=== PATIENT | male | born 1955 | race Caucasian/White ===

== ENCOUNTER → 2019-10-05 08:30 | Outpatient (CLI) | payer MEDICARE, SELFPAY ==
--- NOTE | ~2019-10-05 | MR_ITS ---
EXAMINATION: MR lumbar spine wo/w con EXAM DATE: 10/05/2019 09:36 INDICATION: Radiculopathy, low back surgery one and a half years ago. Difficulty walking. TECHNIQUE: Multi-sequential, multiplanar MR images of the lumbar spine were obtained without contrast . Sagittal T1, T2, T2 fat saturation images. Axial T2 weighted images. Axial T1 weighted sequence. Patient was then injected with 20 mL Multihance intravenous contrast and reimaged. Postcontrast axi al and sagittal T1-weighted fat saturation sequences were obtained. Comparison is made to prior exa mination from 03/02/2017. FINDINGS: The conus medullaris terminates at the L1 level and has normal signal intensity and morphol ogy. There are laminectomies L2-L4. There is some enhancement of the posterior scar tissue, expected finding. No epidural abscess. Mild disc disease L2-3, L3-4 and L5-S1. Severe disc disease L4-5, thes e vertebral bodies now appear partially fused compared to prior study. Level by level evaluation: T12-L1: There is a minimal diffuse disc bulge. Facet arthropathy: Mild to moderate. Neural foraminal stenosis: No stenosis. Central canal stenosis: Mild. L1-L2: There is a minimal diffuse disc bulge. Facet arthropathy: Moderate right, mild to moderate left. Neural foraminal stenosis: No stenosis. Central canal stenosis: No stenosis. L2-L3: There is a moderate to large diffuse disc bulge. Facet arthropathy: Moderate. Neural foraminal stenosis: Moderate right, mild to moderate left. Central canal stenosis: Posterior decompression. L3-L4: There is a moderate to large diffuse disc bulge. Facet arthropathy: Moderate. Neural foraminal stenosis: Moderate bilateral, right greater than left. Central canal stenosis: Posterior decompression. L4-L5: Partial osseous fusion Facet arthropathy: Moderate left, mild to moderate right. Neural foraminal stenosis: Moderate bilateral, left greater than right. Central canal stenosis: Posterior decompression. L5-S1: There is a mild to moderate diffuse disc bulge. Facet arthropathy: Moderate. Neural foraminal stenosis: Moderate left, mild to moderate right. Central canal stenosis: Mild. There is been mild progression in the spondylosis compared to prior study. IMPRESSION: 1. L2-4 laminectomies. 2. Moderate multilevel neural foraminal stenosis. Reviewed, dictated and finalized at location A. [place]
[2019-10-05 09:03] LABS: Blood Urea Nitrogen 16 mg/dL (8-26); Estimated Glomerular Filt Rate > 60
== END ==
PROVIDERS: PCP Anesthesiology; Visit Provider Anesthesiology
DX: M54.16 Radiculopathy, lumbar region (principal)
CPT/HCPCS: 72158; A9577

== ENCOUNTER 2019-10-31 07:09 | Outpatient (CLI) | payer MEDICARE, SELFPAY ==
--- NOTE | 2019-10-31 | ECG_ITS ---
Measurements Intervals [place] Rate: 80 P: 63 AR: 210 QRS: -14 QRSD: 98 T: 55 QT: 377 QTc: 436 Interpretive Statements SINUS RHYTHM WITH FIRST DEGREE AV BLOCK POSSIBLE LEFT ATRIAL ENLARGEMENT POSSIBLE LEFT VENTRICULAR HYPERTROPHY ABNORMAL ECG Electronically Signed On 10-31-2019 8:28:55 CDT by Jamal Calle D.O.
--- NOTE | ~2019-10-31 | XR_ITS ---
XR chest 2V DATE: 10/31/2019 08:16 INDICATION: Preprocedure testing. TECHNIQUE: PA and lateral views COMPARISON: 09/18/2014 portable AP chest FINDINGS: Normal heart size. There is aortic arch calcification. No pulmonary infiltrate or consolidation, pleural effusion or pulmonary vascular congestion or pneumo thorax is detected. There is degenerative spurring at the acromioclavicular joints. There is diffuse idiopathic skeletal hyperostosis of the thoracic spine. IMPRESSION: No active cardiopulmonary disease Reviewed, dictated and finalized at location B.
[2019-10-31 07:52] LABS: Basophils Percent Auto 0.8 % (0.2-1.2); Eosinophils Absolute Auto 0.1 K/mm3 (0-0.3); Eosinophils Percent Auto 2.7 % (0-4.4); Hematocrit 34.1 % (42.0-52.0); Immature Granulocyte Absolute 0.02 K/mm3 (0.00-0.031); Immature Granulocyte Percent A 0.4 % (0-0.5); Lymphocytes Absolute Auto 1.88 K/mm3 (0.9-3.2); Lymphocytes Percent Auto 38.8 % (18.3-44.2); Mean Corpuscular HGB Conc 32.3 g/dl (32-36); Mean Corpuscular Hemoglobin 30.1 pg (26-34); Mean Corpuscular Volume 93.2 fl (80-100); Mean Platelet Volume 9.4 fl (7.4-10.4); Monocytes Absolute Auto 0.5 K/mm3 (0.1-0.6); Monocytes Percent Auto 9.7 % (2.6-8.5); Neutrophils Absolute Auto 2.3 K/mm3 (1.3-6.7); Neutrophils Percent Auto 47.6 % (45.5-73.1); Platelet Count Result 118 k/mm3 (150-375); Red Blood Count 3.66 M/mm3 (4.6-6.20); Red Cell Distribution Width 15.8 % (11.5-14.5); White Blood Count 4.9 K/mm3 (4.5-10.0)
[2019-10-31 07:58] LABS: Add Urine Microscopic? YES; Appearance Urine Clear (Clear); Bilirubin Urine Negative (Negative); Blood Urine Negative (Negative); Color Urine Yellow (Yellow); Glucose Urine UA Negative (Negative); Ketones Urine Trace mg/dL (Negative); Leukocyte Esterase Ur Negative LEU/UL (NEGATIVE); Mucus Urine Few /lpf; Nitrate Urine Negative (Negative); Protein Urine Negative (Negative); Squamous Epithelial Cell Urine Occasional /hpf (Few); WBC Urine 0-3 /hpf (0-3)
[2019-10-31 08:00] LABS: Specific Grav Ur 1.033 (1.001-1.035)
[2019-10-31 08:01] LABS: INR 1.1; Prothrombin Time 13.6 Seconds (11.1-14.7)
[2019-10-31 08:02] LABS: Partial Thromboplastin Time 27.1 SECONDS (22.3-36.8)
[2019-10-31 08:18] LABS: Blood Urea Nitrogen 16 mg/dL (9-20); CRP < 0.5 mg/dL (<1.0); Calcium 8.9 mg/dL (8.4-10.2); Carbon Dioxide 22 mmol/L (22-30); Chloride 107 mmol/L (98-107); Estimated Glomerular Filt Rate > 60; Glucose 109 mg/dL (75-110); Potassium 4.1 mmol/L (3.4-5.0); Sodium 140 mmol/L (137-145)
[2019-10-31 09:32] LABS: Erythrocyte Sedimentation Rate 21 mm/hr (0-20)
== END 2019-10-31 07:10 | disposition home or self-care (01) ==
PROVIDERS: PCP Internal Medicine; Visit Provider Anesthesiology
DX: Z01.812 Encounter for preprocedural laboratory examination (principal); I25.10 Atherosclerotic heart disease of native coronary artery without angina pectoris; Z79.01 Long term (current) use of anticoagulants; M54.16 Radiculopathy, lumbar region; R07.89 Other chest pain
CPT/HCPCS: 36415; 71046; 80048; 81001; 85025; 85610; 85652; 85730; 86140; 93005

== ENCOUNTER 2019-11-16 06:20 | Day surgery (SDC) | payer MEDICARE, SELFPAY ==
[2019-11-14 10:57] VITALS: BMI 40.3
[2019-11-16 06:37] VITALS: BP 136/72; PULSE 84; RESP 20; TEMP 36.6; O2SAT 99; BMI 40.7
[2019-11-16] MEDS: LACTATED RINGERS 1,000 ML 150 ML IV CONT (06:43)
[2019-11-16 06:53] LABS: Glucose Point of Care 108 (65-105)
--- NOTE | 2019-11-16 07:16 | WPDANESEPPF ---
Anes - Initial Pre Proc Eval Procedure: Operation Date: 11/16/19 07:30 Proposed Procedures p Esophagogastroduodenoscopy & Colonoscopy - Alessandro Bernabe MD Date/Time: 11/16/19 07:16 Surgeon: Alessandro Bernabe MD Pre Op Diagnosis: iron deficiency anemia Patient Data Age: 64 Gender: M Height: 6 ft 1 in Weight: 140 kg Last Vital Signs Temp 36.6 C 11/16/19 06:37 Pulse 84 11/16/19 06:37 Resp 20 11/16/19 06:37 BP 136/72 11/16/19 06:37 Pulse Ox 99 11/16/19 06:37 Allergies Allergy/AdvReac Type Severity Reaction Status Date / Time No Known Allergies Allergy Verified 11/16/19 06:27 Home Medications Medication Instructions Recorded Confirmed Type atorvastatin 40 mg tablet 40 mg PO DAILY #90 tablet 06/22/19 11/16/19 Rx lisinopril 20 1 tablet PO DAILY #90 tablet 06/22/19 11/16/19 Rx mg-hydrochlorothiazide 12.5 mg tablet metformin 1,000 mg tablet 1,000 mg PO BID #180 tablet 06/22/19 11/14/19 Rx omeprazole 20 mg capsule,delayed 20 mg PO BID #180 cap 06/22/19 11/14/19 Rx release diclofenac sodium 75 mg 75 mg PO BID #90 tablet 06/30/19 11/16/19 Rx tablet,delayed release insulin detemir U-100 100 unit/mL 140 unit SUB-Q BID #6 vial 07/01/19 11/16/19 Rx subcutaneous solution trazodone 50 mg tablet 50 mg PO DAILY tablet 08/04/19 11/14/19 History levothyroxine 125 mcg tablet 125 mcg PO DAILY #90 tablet 08/19/19 11/16/19 Rx insulin lispro 100 unit/mL 30 unit SUB-Q TID #3 vial 09/05/19 11/16/19 Rx subcutaneous solution divalproex 250 mg tablet,extended 250 mg PO DAILY #90 tablet 10/24/19 11/16/19 Rx release 24 hr sertraline 100 mg tablet 100 mg PO DAILY #90 tablet 10/24/19 11/14/19 Rx tramadol 50 mg tablet 50 mg PO Q4-6H PRN #240 tablet 11/07/19 11/14/19 Rx ferrous sulfate 325 mg (65 mg 325 mg PO BID #180 tablet 11/10/19 11/14/19 Rx iron) tablet Laboratory Tests 11/16/19 06:50 POC Capillary Glucose 108 mg/dl mg/dl (65-105) Patient hx anesthesia problems: none Family hx anesthesia problems: none PMFSH Past Medical History Medical History Blood in stool Body mass index (BMI) 40.0-44.9, adult Encounter for routine adult health examination with abnormal findings Encounter for special screening examination for neoplasm of prostate FHx: colon cancer Family History Family History Father Carcinoma of colon Family history of malignant neoplasm of bone Mother Family history of lung cancer Family history of malignant neoplasm of brain Family history of malignant neoplasm of breast in first degree relative Other Diabetes mellitus Family history of arthritis Family history of hearing loss Family history of malignant neoplasm Social History Social History Smoking status: Light tobacco smoker Second hand tobacco smoke exposure: No Alcohol intake: never Anes - Eval Final PreProcedure Day of Procedure 11/16/19 07:16 Patient weight: morbidly obese Heart: regular rate and rhythm Lungs: clear to auscultation Airway: Mallampati scale Neurological: alert and oriented Last oral intake: >/= 8 hours ASA classification: III Emergent: no Anesthetic plan: proceed Anesthesia type and monitoring: general GIVS and standard monitoring Informed Consent: The patient's anesthetic plan and its attendant risks and benefits were discussed with the patient/family/POA. Questions were solicited and answers provided to the satisfaction of the patient/family/POA.
--- NOTE | 2019-11-16 07:19 | PM.HPGS ---
History of Present Illness History of Present Illness Consent: Risks, benefits, and alternatives have been discussed and questions answered. Patient agrees to proceed with procedure. Chief complaint: iron deficiency anemia Narrative: Huber Cook is a 64 year old male Referred because of blood loss anemia. He was found to have a low hemoglobin, low iron studies and blood in the stools by [facility]. There is a family history of colon cancer in his father. He has lost about 70 lb in the past year although he has been trying to lose weight to manage his diabetes and obesity. [facility] Past Medical History Medical History Blood in stool Body mass index (BMI) 40.0-44.9, adult Encounter for routine adult health examination with abnormal findings Encounter for special screening examination for neoplasm of prostate FHx: colon cancer Family History Family History Father Carcinoma of colon Family history of malignant neoplasm of bone Mother Family history of lung cancer Family history of malignant neoplasm of brain Family history of malignant neoplasm of breast in first degree relative Other Diabetes mellitus Family history of arthritis Family history of hearing loss Family history of malignant neoplasm Social History Social History Smoking status: Light tobacco smoker Second hand tobacco smoke exposure: No Alcohol intake: never Meds Home Medications and Allergies Home Medications Medication Instructions Recorded Confirmed Type atorvastatin 40 mg tablet 40 mg PO DAILY #90 tablet 06/22/19 11/16/19 Rx lisinopril 20 1 tablet PO DAILY #90 tablet 06/22/19 11/16/19 Rx mg-hydrochlorothiazide 12.5 mg tablet metformin 1,000 mg tablet 1,000 mg PO BID #180 tablet 06/22/19 11/14/19 Rx omeprazole 20 mg capsule,delayed 20 mg PO BID #180 cap 06/22/19 11/14/19 Rx release diclofenac sodium 75 mg 75 mg PO BID #90 tablet 06/30/19 11/16/19 Rx tablet,delayed release insulin detemir U-100 100 unit/mL 140 unit SUB-Q BID #6 vial 07/01/19 11/16/19 Rx subcutaneous solution trazodone 50 mg tablet 50 mg PO DAILY tablet 08/04/19 11/14/19 History levothyroxine 125 mcg tablet 125 mcg PO DAILY #90 tablet 08/19/19 11/16/19 Rx insulin lispro 100 unit/mL 30 unit SUB-Q TID #3 vial 09/05/19 11/16/19 Rx subcutaneous solution divalproex 250 mg tablet,extended 250 mg PO DAILY #90 tablet 10/24/19 11/16/19 Rx release 24 hr sertraline 100 mg tablet 100 mg PO DAILY #90 tablet 10/24/19 11/14/19 Rx tramadol 50 mg tablet 50 mg PO Q4-6H PRN #240 tablet 11/07/19 11/14/19 Rx ferrous sulfate 325 mg (65 mg 325 mg PO BID #180 tablet 11/10/19 11/14/19 Rx iron) tablet Allergies Allergy/AdvReac Type Severity Reaction Status Date / Time No Known Allergies Allergy Verified 11/16/19 06:27 Vital Signs Vital Signs - 24 hr 11/16/19 06:37 Temperature 36.6 C Pulse Rate 84 Respiratory Rate 20 Blood Pressure 136/72 Pulse Oximetry 99 Exam Const: Nutritional Appearance: obese Orientation/consciousness: patient oriented x3 Resp: Auscultation: clear to auscultation bilaterally Cardio: Rhythm: regular rhythm GI: GI Palp: Yes Soft to palpation and No Tenderness to palpation present (GI) Neuro: General: patient oriented x3 Assessment and Plan Assessment and plan (1) Blood in stool: Code(s): K92.1 - Melena Status: Acute Assessment and Plan: EGD with possible biopsy or dilatation or cautery Colonoscopy with possible biopsy, polypectomy,injection of substances, or cautery
[2019-11-16 08:08] VITALS: BP 95/48; PULSE 82; RESP 20; O2SAT 97
[2019-11-16 08:18] VITALS: BP 108/64; PULSE 80; RESP 20; O2SAT 97
[2019-11-16 08:28] VITALS: BP 118/68; PULSE 86; RESP 20; O2SAT 99
[2019-11-16 08:56] LABS: Glucose Point of Care 87 (65-105)
== END 2019-11-16 08:55 | disposition home or self-care (01) ==
PROVIDERS: PCP Internal Medicine; Visit Provider Internal Medicine Gastroenterology
PROC: 0DJ08ZZ Inspection of Upper Intestinal Tract, Via Natural or Artificial Opening Endoscopic (ICD-10-PCS; CPT 43235; principal; 2019-11-16 07:30)
DX: D50.0 Iron deficiency anemia secondary to blood loss (chronic) (principal); K92.1 Melena; D12.3 Benign neoplasm of transverse colon; K31.7 Polyp of stomach and duodenum; K21.9 Gastro-esophageal reflux disease without esophagitis; K29.70 Gastritis, unspecified, without bleeding; K29.80 Duodenitis without bleeding; Z80.0 Family history of malignant neoplasm of digestive organs; Z79.4 Long term (current) use of insulin; Z79.84 Long term (current) use of oral hypoglycemic drugs; Z72.0 Tobacco use; E66.01 Morbid (severe) obesity due to excess calories; Z68.41 Body mass index [BMI] 40.0-44.9, adult
CPT/HCPCS: 45380; 43251; 88305; J2704; J7120

== ENCOUNTER 2020-03-30 09:16 | Outpatient (CLI) | payer MEDICARE, SELFPAY ==
--- NOTE | ~2020-03-30 | US_ITS ---
EXAMINATION: US abdomen limited DATE: 03/30/2020 09:58 INDICATION: Thrombocytopenia. TECHNIQUE: Multiple grayscale and Doppler ultrasound images of the abdomen were obtained. COMPARISON: None FINDINGS: The visualized portions of the head and body of the pancreas are normal. The liver demonstr ates coarsened echotexture and surface nodularity, consistent with cirrhosis. There is normal flow in main portal vein. The gallbladder is absent. There is mild splenomegaly measuring 15.8 cm. IMPRESSION: 1. Cirrhosis of the liver. 2. Mild splenomegaly, consistent with portal venous hypertension. Reviewed, dictated and finalized at location B.
== END 2020-03-30 09:17 | disposition home or self-care (01) ==
PROVIDERS: PCP Internal Medicine; Visit Provider Internal Medicine
DX: D69.6 Thrombocytopenia, unspecified (principal); K74.60 Unspecified cirrhosis of liver
CPT/HCPCS: 76705

== ENCOUNTER 2020-04-05 14:59 | Outpatient (CLI) | payer MEDICARE, SELFPAY ==
[2020-04-05 15:28] LABS: Basophils Absolute Auto 0.1 K/mm3 (0.0-0.1); Eosinophils Absolute Auto 0.3 K/mm3 (0-0.3); Eosinophils Percent Auto 5.4 % (0-4.4); Hematocrit 36.5 % (42.0-52.0); Hemoglobin 12.2 g/dL (14.0-18.0); Immature Granulocyte Absolute 0.02 K/mm3 (0.00-0.031); Immature Granulocyte Percent A 0.3 % (0-0.5); Immature Reticulocyte Fraction 21.3 % (3.0-15.9); Lymphocytes Percent Auto 38.5 % (18.3-44.2); Mean Corpuscular HGB Conc 33.4 g/dl (32-36); Mean Corpuscular Hemoglobin 31.1 pg (26-34); Mean Corpuscular Volume 93.1 fl (80-100); Mean Platelet Volume 9.4 fl (7.4-10.4); Monocytes Absolute Auto 0.5 K/mm3 (0.1-0.6); Monocytes Percent Auto 9.3 % (2.6-8.5); Neutrophils Absolute Auto 2.6 K/mm3 (1.3-6.7); Neutrophils Percent Auto 45.5 % (45.5-73.1); Platelet Count Result 129 k/mm3 (150-375); Red Blood Count 3.92 M/mm3 (4.6-6.20); Red Cell Distribution Width 15.4 % (11.5-14.5); Reticulocyte Hemoglobin Conten 37.8 pg (28.2-35.7); Reticulocyte Percent 2.92 % (0.7-4.3); Reticulocytes Absolute 0.11 B/L (32.2-175.7); White Blood Count 5.7 K/mm3 (4.5-10.0)
[2020-04-05 16:42] LABS: Iron 85 ug/dL (49-181)
[2020-04-05 16:44] LABS: Alanine Aminotransferase 72 U/L (4-50); Albumin Level 3.9 g/dL (3.5-5.1); Alkaline Phosphatase 87 U/L (38-126); Anion Gap 9 mmol/L (8-16); Aspartate Amino Transferase 96 U/L (17-59); Bilirubin,Total 0.4 mg/dL (0.2-1.3); Blood Urea Nitrogen 14 mg/dL (9-20); Calcium 9.1 mg/dL (8.4-10.2); Carbon Dioxide 22 mmol/L (22-30); Chloride 108 mmol/L (98-107); Estimated Glomerular Filt Rate > 60; Glucose 107 mg/dL (75-110); Lactate Dehydrogenase 490 U/L (313-618); Potassium 4.5 mmol/L (3.4-5.0); Sodium 139 mmol/L (137-145)
[2020-04-05 16:52] LABS: Percent Iron Saturation 20 % (20-50)
[2020-04-05 17:17] LABS: Thyroid Stimulating Hormone 0.969 uIU/mL (0.465-4.680)
[2020-04-05 18:02] LABS: Folic Acid > 20.0 ng/mL (2.76->20)
[2020-04-10 09:07] LABS: Methylmalonic Acid 120 nmol/L (87-318)
[2020-04-10 17:26] LABS: Soluble Transferrin Receptor 1.68 mg/L (0.76-1.76)
[2020-04-10 23:18] LABS: Albumin 3.5 g/dL (3.8-4.8); Alpha 1 Globulin 0.3 g/dL (0.2-0.3); Alpha 2 Globulin 0.6 g/dL (0.5-0.9); Beta 1 Globulin 0.4 g/dL (0.4-0.6); Gamma Globulin 0.8 g/dL (0.8-1.7); Protein, Total 5.9 g/dL (6.1-8.1)
== END 2020-04-05 15:00 | disposition home or self-care (01) ==
LOC: ANHLAB 15:01
PROVIDERS: PCP Internal Medicine; Visit Provider Internal Medicine Hematology & Oncology
DX: D64.9 Anemia, unspecified (principal)
CPT/HCPCS: 36415; 80053; 82607; 82728; 82746; 83540; 83550; 83615; 83921; 84155; 84165; 84238; 84443; 85025; 85046; 86334

== ENCOUNTER 2020-08-26 11:55 | Inpatient (IN) | payer MEDICARE, SELFPAY ==
[2020-08-26] VITALS (46 sets, daily range): BP systolic 132–165; BP diastolic 60–85; PULSE 80–100; RESP 12–20; TEMP 36.4–37.2; O2SAT 94–100
--- NOTE | ~2020-08-26 | CT_ITS ---
EXAMINATION: CT BRAIN W/O DATE: 08/26/2020 13:30 INDICATION: Altered mental status TECHNIQUE: Computed tomography (CT) of the head was performed without intravenous contrast. The dose- length product was 605.33 mGy-cm. The mA was adjusted according to patient size. Iterative reconstruc tion technique was employed. COMPARISON: No prior studies for comparison. FINDINGS: Normal brain parenchymal volume for age. Normal robert-white differentiation. No acute intrac ranial hemorrhage, infarction, mass or mass effect. There are scattered mild periventricular and subc ortical white matter changes, most likely related to small vessel ischemic disease (microangiopathy). No ventriculomegaly or midline shift. Midline sagittal images demonstrate a normal corpus callosum, c raniovertebral junction and sella turcica. Basilar cisterns are patent. Paranasal sinuses and mastoids are pneumatized. No depressed skull fractures. IMPRESSION: 1. No acute intracranial abnormality. Reviewed, dictated and finalized at location A. N RESOURCE OFFICER
--- NOTE | ~2020-08-26 | XR_ITS ---
XR chest 1V portable 08/26/2020 12:23 Indication: Altered mental status. Dyspnea. Procedure: AP portable chest Comparison: Comparison to multiple prior studies sequentially, with oldest reviewed study dated 04/2011. Findings: Heart size normal. No focal air space disease, pulmonary edema, pleural effusion or suspect ed pneumothorax. No acute osseous abnormality. Impression: 1: No acute cardiopulmonary disease. Reviewed, dictated and finalized at location A. IC[employer] DATA MANAGEMENT DIRECTOR Impression: 1: No acute cardiopulmonary disease.
--- NOTE | ~2020-08-26 | XR_ITS ---
EXAMINATION: XR lumbar puncture diagnostic DATE: 08/27/2020 12:02 INDICATION: Headache. Fever. Encephalopathy. TECHNIQUE: The skin overlying the L4 level was prepped and draped in usual sterile fashion. Subcutan eous 1% lidocaine was used for local anesthesia. A 20 gauge spinal needle was advanced under fluoros copic guidance. The needle was removed and the entry site was cleaned and dressed. There were no imm ediate complications. Fluoroscopy exposure time was 0.1 minutes. The total number of images was 1. FINDINGS: Real-time fluoroscopy demonstrates the needle at the L4 level. The opening pressure was 10 cm water (Normal range is variably defined as 6-20 cm water and up to 25 cm water in obese patients. Pressure >25 cm water is one of the modified Dandy criteria for idiopathic intracranial hypertension) . 14 mL of clear, colorless fluid was collected in 4 tubes. IMPRESSION: 1. Successful fluoro-guided lumbar puncture. Reviewed, dictated and finalized at location A. [employer]ER [employer]
--- NOTE | 2020-08-26 12:10 | ECG_ITS ---
Measurements Intervals [place] Rate: 95 P: 66 FL: 214 QRS: -9 QRSD: 99 T: 78 QT: 382 QTc: 482 Interpretive Statements SINUS RHYTHM WITH FIRST DEGREE AV BLOCK POSSIBLE LEFT ATRIAL ENLARGEMENT POSSIBLE LEFT VENTRICULAR HYPERTROPHY DELAYED PRECORDIAL R/S TRANSITION BORDERLINE ST-T WAVE ABNORMALITY- HIGH LATERAL LEADS ABNORMAL ECG Electronically Signed On 08-26-2020 16:30:37 COW TESTER by Jamal Calle D.O.
[2020-08-26 12:15] LABS: Glucose Point of Care 128 (65-105)
--- NOTE | 2020-08-26 12:19 | PC.NURSE ---
Xray at bedside.
[2020-08-26 12:21] LABS: Basophils Percent Auto 0.9 % (0.2-1.2); Eosinophils Absolute Auto 0.3 K/mm3 (0-0.3); Eosinophils Percent Auto 5.8 % (0-4.4); Hematocrit 40.5 % (42.0-52.0); Hemoglobin 13.5 g/dL (14.0-18.0); Immature Granulocyte Absolute 0.01 K/mm3 (0.00-0.031); Immature Granulocyte Percent A 0.2 % (0-0.5); Lymphocytes Absolute Auto 1.71 K/mm3 (0.9-3.2); Lymphocytes Percent Auto 36.5 % (18.3-44.2); Mean Corpuscular HGB Conc 33.3 g/dl (32-36); Mean Corpuscular Hemoglobin 31.8 pg (26-34); Mean Corpuscular Volume 95.3 fl (80-100); Mean Platelet Volume 9.6 fl (7.4-10.4); Monocytes Absolute Auto 0.4 K/mm3 (0.1-0.6); Monocytes Percent Auto 8.8 % (2.6-8.5); Neutrophils Absolute Auto 2.2 K/mm3 (1.3-6.7); Neutrophils Percent Auto 47.8 % (45.5-73.1); Platelet Count Result 108 k/mm3 (150-375); Red Blood Count 4.25 M/mm3 (4.6-6.20); Red Cell Distribution Width 15.1 % (11.5-14.5); White Blood Count 4.7 K/mm3 (4.5-10.0)
--- NOTE | 2020-08-26 12:27 | ED.AMS ---
HPI - Altered Mental Status General Chief Complaint: Neuro Symptoms/Deficit Stated Complaint: trouble thinking and talking. sent by PCP Time Seen by Provider: 08/26/20 12:12 Source: patient Mode of arrival: ambulatory Limitations: no limitations History of Present Illness HPI narrative: Patient is a 65-year-old male brought in due to confusion, not remembering things described as not knowing the date and names, confused according to . states that he has trouble with his memory is anyways but the past 3 days it is worse. Patient denies any speech or visual disturbance, weakness, numbness or unsteady gait. Patient has a history of blindness on both eyes, he only has 10% of his vision , nothing is changed from baseline according to . Denies any chest pain, shortness of breath, dull pain, nausea, vomiting, diarrhea, fever or chills. Patient denies any urinary symptoms. Related Data Home Medications Medication Instructions Recorded Confirmed trazodone 50 mg tablet 50 mg PO DAILY tablet 08/04/19 08/08/20 blood sugar diagnostic #10 ea 08/02/20 08/08/20 Allergies Allergy/AdvReac Type Severity Reaction Status Date / Time No Known Allergies Allergy Verified 08/26/20 12:08 Review of Systems Review of Systems: All systems reviewed & are unremarkable except as noted in HPI and below Constitutional: Constitutional: Denies body ache(s), Denies chills, Denies excessive sweating, Denies fatigue, Denies fever(s), Denies headache(s), Denies lethargy, Denies malaise, Denies weakness and Denies weight loss Eyes: Eyes: Denies blurry vision, Denies change in vision and Denies loss of vision ENT: Denies dizziness, Denies ear discharge, Denies headache(s), Denies lip swelling, Denies epistaxis, Denies nasal congestion, Denies neck pain, Denies throat swelling and Denies tongue swelling Cardiovascular: Cardiovascular: Denies chest pain, Denies chest pain at rest, Denies chest pain with activity, Denies diaphoresis, Denies rapid heart rate, Denies edema, Denies irregular heart rhythm, Denies lightheadedness, Denies palpitations, Denies dyspnea and Denies dyspnea on exertion Respiratory: Respiratory: Denies chest congestion, Denies cough, Denies hemoptysis, Denies dyspnea and Denies dyspnea on exertion Gastrointestinal: Gastrointestinal: Denies abdominal pain, Denies melena, Denies hematochezia, Denies diarrhea, Denies nausea, Denies vomiting and Denies hematemesis Musculoskeletal: Musculoskeletal: Denies abnormal gait, Denies deformity, Denies joint swelling, Denies limited range of motion, Denies neck pain and Denies numbness Neurologic: Denies Abnormal speech present, Denies abnormal gait, Denies dizziness, Denies headache(s), Denies focal weakness, Denies loss of vision, Denies numbness, Denies Other visual disturbances, Denies Sensory deficit (Neuro) and Denies weakness Psychiatric: Psychiatric: Denies confusion, Denies depression, Denies auditory hallucinations, Denies homicidal ideation and Denies suicidal ideation Endocrine: Endocrine: Denies cold intolerance, Denies excessive sweating, Denies fatigue, Denies heat intolerance and Denies palpitations Hematologic/Lymphatic: Hematologic/Lymphatic: Denies easy bleeding and Denies easy bruising Allergic/Immunologic: Allergic/Immunologic: Denies lip swelling, Denies throat swelling and Denies tongue swelling PMFSH Past Medical History Medical History Abnormal finding of blood chemistry Blood in stool Body mass index (BMI) 40.0-44.9, adult Callus of foot Cirrhosis Encounter for routine adult health examination with abnormal findings Encounter for routine adult health examination without abnormal findings Encounter for special screening examination for neoplasm of prostate FHx: colon cancer [place] Personal history of nicotine dependence Thrombocytopenia Family History Family History (Reviewed 08/26/20 @ 15:15 by Bella
[2020-08-26 12:32] LABS: INR 1.1; Partial Thromboplastin Time 29.3 SECONDS (22.3-36.8); Potassium 3.8 mmol/L (3.4-5.0); Prothrombin Time 14.7 Seconds (11.1-14.7)
[2020-08-26 12:35] LABS: Anion Gap 13 mmol/L (8-16); Blood Urea Nitrogen 14 mg/dL (9-20); Calcium 9.3 mg/dL (8.4-10.2); Carbon Dioxide 23 mmol/L (22-30); Chloride 108 mmol/L (98-107); Estimated CRCL calculation 136 ml/min; Estimated Glomerular Filt Rate > 60; Glucose 136 mg/dL (75-110); Sodium 144 mmol/L (137-145)
[2020-08-26 12:44] LABS: Troponin I < 0.012 ng/mL (0.000-0.034)
--- NOTE | 2020-08-26 13:42 | PC.NURSE ---
PT UNABLE TO GIVE URINE SAMPLE AT THIS TIME. RN NOTIFIED.
[2020-08-26] MEDS: LACTATED RINGERS 1,000 ML 999 ML IV CONT (14:19)
[2020-08-26 14:27] LABS: Add Urine Microscopic? YES; Appearance Urine Clear (Clear); Bilirubin Urine Negative (Negative); Blood Urine Negative (Negative); Color Urine Yellow (Yellow); Glucose Urine UA Negative (Negative); Ketones Urine 1+ mg/dL (Negative); Leukocyte Esterase Ur Negative LEU/UL (Negative); Mucus Urine Rare /lpf; Nitrate Urine Negative (Negative); Protein Urine 1+ mg/dL (Negative); RBC Urine 0-2 /hpf (0-2); Specific Grav Ur 1.027 (1.001-1.035); Squamous Epithelial Cell Urine Occasional /hpf (Few); WBC Urine 0-3 /hpf
--- NOTE | 2020-08-26 17:05 | PC.NURSE ---
Pt resting on stretcher. Awaiting bed assignment for admission. Call light within reach.
--- NOTE | 2020-08-26 17:31 | PC.NURSE ---
Food tray ordered for pt.
--- NOTE | 2020-08-26 18:53 | PC.NURSE ---
184 pt arrived from ED in w/c ,alert no distress, pt up out of chair and to bathroom ,[id number] pt ambulated to bed , gait steady, oriented to room and call light
--- NOTE | 2020-08-26 19:00 | PC.NURSE ---
This patient, Huber Cook, was admitted to [facility] Surg Room 331-01. Patient/family oriented to hospital policies and general routines including ID bracelet, bed and alarms, visiting hours, pain management, procedures, bathroom and other care routines, personal items, smoking policy, room service/diet, and visiting hours. Information on how to activate the Rapid Response Team has been discussed. Patient/Family are encouraged to report perceived risks to care and to ask questions if they do not understand what they are told or what they should do.
[2020-08-26 21:06] LABS: Vitamin D 25 Hydroxy 40.2 ng/mL
[2020-08-26 21:59] LABS: Glucose Point of Care 151 (65-105)
[2020-08-26 22:40] LABS: Folic Acid > 20.0 ng/mL (2.76->20)
--- NOTE | 2020-08-26 22:50 | PC.NURSE ---
Addendum entered by Pricila Cazares RN 08/27/20 06:14: 0614 spoke with to verify insulin. Original Note: 2250- Call made out to - Hiral regaurding insulin dosage and frequency. No answer, left voicemail. Patient is not able to verify insulin dose and frequency at this time. Will pass in report to day shift RN.
[2020-08-27] MEDS: traMADol HCL (*CRX) 50 MG TABLET PO (00:41)
[2020-08-27] MEDS: FERROUS SULFATE 324 MG TABLET PO ×3 (00:42→17:36)
[2020-08-27] MEDS: DICLOFENAC SOD 75 MG TABLET.EC PO (00:42)
[2020-08-27] MEDS: DIVALPROEX SODIUM 250 MG TABEC PO ×3 (00:42→17:36)
[2020-08-27] MEDS: PANTOPRAZOLE SOD SESQUIHYDRATE 20 MG TAB PO ×2 (00:42→20:32)
[2020-08-27] MEDS: metFORMIN HCL 500 MG TABLET 1000 MG PO ×3 (00:42→17:36)
[2020-08-27 06:00] VITALS: BP 143/72; PULSE 84; RESP 20; TEMP 36.7; O2SAT 97; BMI 40.4
[2020-08-27] MEDS: LEVOTHYROXINE SODIUM 125 MCG TABLET PO (06:24)
--- NOTE | 2020-08-27 07:12 | PM.IMHP ---
H&P: HPI History of Present Illness Date/Time: 08/27/20 07:12 Chief Complaint: Difficulty speaking and thinking Narrative: Huber Cook is a 65 year old male with a past medical history diabetes, mild memory loss, hypertension, legal blindness and depression who presented to the ER with 3 days of confusion. Source of information is the patient's is patient is encephalopathic at this time is only oriented to self. Patient's reports the patient always has some mild memory difficulties but 3 days ago the patient became markedly confused. He was having difficulty understanding what she was trying to tell him. He was only intermittently answering her questions in his responses were not always appropriate. He started shaking while he was eating dinner and felt warm to touch. She checked his temperature and his temperature was 99.4?. He has had intermittent low-grade temperatures ranging between 99 and 100 for the last 3 days. On Thursday he seemed even more confused. On Thursday night she found the patient lying in his lift chair with his head on the foot of the chair. The patient usually wears his CPAP all the time but he was not wearing his CPAP when she found him. The patient had been complaining of 3 days of headache and had been rubbing his neck repetitively. He had seemed more fatigued and was sleeping more than usual. The patient's thought this may be due to then placing a dex com continuous glucose monitor on . I reassured her that the glucose monitor did not cause the patient's current symptoms. She has not noticed the patient having any cough or congestion. He has not complained of any knee or leg pain. He does have a history of multiple infections in his right knee following knee replacement that required hardware removal and subsequent replacement of the hardware. However patient has relatively normal range of motion of his knees at this time and denies knee pain. His joints do not appear to be swollen. He did have a spinal stimulator placed in December of 2019. He denies having any back pain or trauma. His reports that they had had friends over on Thursday in the patient was so confused that he was unable to play cards. The patient has had decreased appetite for the last 3 days to the point that he has not required any insulin for the last 5 days. She reports that she only gives him his 70 30 insulin if his glucoses are greater than 150. At that time she will give him 10 units b.i.d.. The patient has not been having any nausea or vomiting. He has not had any ill contacts. She reported that although he had episodes of confusion he was still speaking in sentences for the most part. She had not noticed any slurred speech. She noticed that he was seemed to have trouble staying awake. At the time of my evaluation the patient is only answer questions in 1 word answers. He seems frustrated and is having difficulty focusing. He seems to be having difficulty staying awake. Review of Systems Review of Systems: ROS unobtainable: Yes unobtainable due to mental status [facility] Past Medical History Medical History (Updated 08/27/20 @ 08:44 by Donna Segovia, DO) Amputation of finger of left hand Anxiety and depression Blindness of left eye Due to retinal detachment Body mass index (BMI) 40.0-44.9, adult Callus of foot Cirrhosis Esophageal spasm Essential (primary) hypertension Gastroesophageal reflux disease without esophagitis Glaucoma Left eye [place] Hepatitis B No longer active Herniated cervical disc Hypothyroidism Iron deficiency With most recent iron studies within normal limits 2019 Memory problem Mixed hyperlipidemia COREY on CPAP Peripheral neuropathy Personal history of nicotine dependence PTSD (post-traumatic stress disorder) Thrombocytopenia Type 2 diabetes mellitus Hemoglobin A1c of 5.3 05/04/2020 Surgical History Surgical History (Updated 08/27/20 @ 08:43 by Donna Segovia,
[2020-08-27 09:05] LABS: Glucose Point of Care 162 (65-105)
[2020-08-27 09:14] LABS: Alveolar/Arterial O2 Gradient 23.8 mmHg; Base Excess ABG -3.8 mEq/l (+/-2.0); Carboxyhemoglobin 0.2 % THb (0-2.0); Fractional Inspired Oxygen 21 %; HCO3 ABG 19.7 mEq/l (22.0-26.0); Methemoglobin ABG 0.3 %THb (0-1.5); Oxygen Content ABG 16.1 %vol (16.0-22.0); Oxyhemoglobin 93.9 % THb (90.0-100.0); PCO2 ABG 31.1 mmHg (35.0-45.0); PO2 ABG 88.7 mmHg (80.0-100.0); PO2 FiO2 Ratio Arterial Blood 4.22 %; Reduced Hemoglobin 5.6 %THb (0-5.0); Total Hemoglobin 12.1 g/dL (12.0-18.0)
[2020-08-27 09:15] LABS: Device ROOM AIR; Modified Allen's Test Pass; Site Drawn RIGHT RADIAL
--- NOTE | 2020-08-27 09:46 | WPDNEURCNPN ---
Assessment and Plan Assessment and plan (1) Encephalopathy acute: Code(s): G93.40 - Encephalopathy, unspecified Status: Acute (2) Altered mental status: Qualifiers: Altered mental status type: disorientation Qualified Code(s): R41.0 - Disorientation, unspecified Code(s): R41.82 - Altered mental status, unspecified Status: Acute Additional Plan encephalopathy has been started on the empirical antibiotic therapy with the intention of all the cultures and checking for COVID PCR and obviously he can't have the MRI because of spinal stimulator treatment will be continued as such Consult date: 08/27/20 Time Seen: 09:15 HPI: Huber Cook is a 65 year old male admitted to the hospital for the complaints of confusion of 72 hours duration patient carries the diagnosis of 1. Diabetes mellitus 2. Hypertension 3. Legal blindness 4. Depression and 5. 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, history of cirrhosis, essential hypertension, hepatitis-B in the past, herniated neck disc, pertinent investigations include CT scan of the head with no bleed routine lab studies not very significant but the valproic acid level is 33.9 Review of Systems Review of Systems: All systems reviewed & are unremarkable except as noted in HPI and below PMFSH Past Medical History Medical History Amputation of finger of left hand Anxiety and depression Blindness of left eye Due to retinal detachment Body mass index (BMI) 40.0-44.9, adult Callus of foot Cirrhosis Esophageal spasm Essential (primary) hypertension Gastroesophageal reflux disease without esophagitis Glaucoma Left eye [place] Hepatitis B No longer active Herniated cervical disc Hypothyroidism Iron deficiency With most recent iron studies within normal limits 2019 Memory problem Mixed hyperlipidemia COREY on CPAP Peripheral neuropathy Personal history of nicotine dependence PTSD (post-traumatic stress disorder) Thrombocytopenia Type 2 diabetes mellitus Hemoglobin A1c of 5.3 05/04/2020 Surgical History Surgical History History of bilateral carpal tunnel release History of cardiac catheterization 2012 at [facility] [address] Moncada History of colonoscopy with polypectomy November 2019 History of total bilateral knee replacement With multiple revisions of the right knee due to infection with the last revision being in 2019. Hx of cholecystectomy S/P insertion of spinal cord stimulator December 2019 Family History Family History Father Carcinoma of colon Bone cancer Mother Lung cancer Breast cancer Brain cancer Sibling Acute myocardial infarction Diabetes mellitus Other Family history of hearing loss Social History Social History Social History: He lives in [place] with his Hiral. 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 He used to smoke cigars but quit smoking in 1994. Primary care physician: Dr. Jaswant Tse Code status: Full code per EMR Surrogate decision maker: Hiral () Smoking status: Former smoker Second hand tobacco smoke exposure: No Alcohol intake: former Substance use: never Spiritual care concerns: No Meds Home Medications and Allergies Home Medications Medication Instructions Recorded Confirmed T
[2020-08-27] MEDS: lisinopriL 20 MG TABLET PO (10:12)
[2020-08-27] MEDS: hydroCHLOROthiazide 12.5 MG CAPSULE PO (10:12)
[2020-08-27] MEDS: SERTRALINE HCL 50 MG TABLET 100 MG PO (10:12)
[2020-08-27] MEDS: OMEGA 3 POLYUNSAT FATTY ACIDS 1 GM CAP 2 GM PO ×2 (10:13→17:35)
[2020-08-27] MEDS: ATORVASTATIN 40 MG TABLET PO (10:13)
[2020-08-27 11:08] VITALS: BP 131/75; PULSE 89; RESP 16; O2SAT 96
--- NOTE | 2020-08-27 11:19 | PC.NURSE ---
patient to Xray for LP at 1100 per bed.
[2020-08-27 11:47] VITALS: BP 140/82; PULSE 95; RESP 18; O2SAT 96
[2020-08-27] MEDS: AMPICILLIN 2 GM/NS 100 ML 2 GM/100 ML BAG IVPB ×4 (12:04→23:50)
[2020-08-27 12:34] LABS: Glucose Point of Care 132 (65-105)
[2020-08-27 12:52] LABS: Total Protein CSF 131 mg/dL (12-60)
[2020-08-27 13:08] LABS: Glucose CSF 71 mg/dL (40-70)
[2020-08-27 13:20] LABS: Appearance CSF Clear (Clear); CSF source CSF; Color CSF Colorless (Colorless); Nucleated Cell CSF 5 /uL (0-5); Red Blood Cell CSF 27 (0-2)
[2020-08-27 13:21] LABS: Monocytes CSF 54 % (15-45)
[2020-08-27 13:22] LABS: Lymphocytes CSF 46 % (40-80)
[2020-08-27 14:00] VITALS: BP 167/71; PULSE 96; RESP 20; TEMP 37.2; O2SAT 98
--- NOTE | 2020-08-27 16:36 | PM.IMPN ---
Progress Note: A&P Assessment and Plan (1) Encephalopathy acute: Code(s): G93.40 - Encephalopathy, unspecified Status: Acute Assessment and Plan: Empirically placed on antibiotic therapy for Meningitis Await CSF results (2) Altered mental status: Qualifiers: Altered mental status type: disorientation Qualified Code(s): R41.0 - Disorientation, unspecified Code(s): R41.82 - Altered mental status, unspecified Status: Acute Assessment and Plan: Unclear etiology Supportive care Neurologist consult appreciated Checking Ammonia level considering patient's history (3) Cirrhosis: Qualifiers: Hepatic cirrhosis type: unspecified hepatic cirrhosis Ascites presence: unspecified Qualified Code(s): K74.60 - Unspecified cirrhosis of liver Code(s): K74.60 - Unspecified cirrhosis of liver Status: Acute Assessment and Plan: On no meds (4) Body mass index (BMI) 40.0-44.9, adult: Code(s): Z68.41 - Body mass index [BMI]40.0-44.9, adult Status: Acute Assessment and Plan: Life style and diet modifications. Subjective Date/time seen: 08/27/20 16:36 Lying in bed. Review of Systems Review of Systems: Narrative: Unable to obtain as patient is obtundent. Exam Narrative: Exam Narrative: Lying in bed. Const: General: comfortable, no acute distress and patient obtunded Nutritional Appearance: overweight Orientation/consciousness: oriented to person HENMT: Head: normocephalic Eyes: General: appearance normal, both eyes and all related structures Pupils: Equal, round and reactive pupils present EOM: EOMs intact bilaterally Neck: Neck: no lymphadenopathy, supple and no JVD Resp: Auscultation: clear to auscultation bilaterally Cardio: Jugular venous distension: no JVD Rate: regular rate Rhythm: regular rhythm GI: GI Palp: Yes Soft to palpation and Yes No hepatosplenomegaly present Skin: General skin exam: normal color Rashes: no rashes Wounds: no wounds Neuro: General: oriented to person and CN's II-XI intact bilaterally Cranial nerves: Yes Equal, round and reactive pupils present Cognition (Neuro): abnormal cognition (Stuporous.) Motor exam (neuro): 5/5 motor strength present throughout Extrem: General: no pedal edema Objective Data Vital Signs Vital Signs: Vital Signs - 24 hr 08/26/20 16:45 08/26/20 17:00 08/26/20 17:02 Temperature Pulse Rate 83 83 84 Respiratory Rate 18 18 19 Blood Pressure 156/76 H Pulse Oximetry 96 94 94 08/26/20 17:15 08/26/20 17:30 08/26/20 17:32 Temperature Pulse Rate 83 87 86 Respiratory Rate 17 19 20 Blood Pressure 159/85 H Pulse Oximetry 96 96 94 08/26/20 17:33 08/26/20 17:45 08/26/20 18:00 Temperature Pulse Rate 85 90 100 Respiratory Rate 20 13 18 Blood Pressure Pulse Oximetry 95 97 98 08/26/20 18:02 08/26/20 18:07 08/26/20 18:08 Temperature Pulse Rate 96 95 97 Respiratory Rate 18 16 16 Blood Pressure 133/77 Pulse Oximetry 98 97 100 08/26/20 18:09 08/26/20 18:10 08/26/20 18:11 Temperature Pulse Rate 95 96 97 Respiratory Rate 17 19 14 Blood Pressure 161/85 H Pulse Oximetry 97 100 98 08/26/20 18:15 08/26/20 18:40 08/26/20 22:00 Temperature 99.0 F 98.0 F Pulse Rate 90 95 90 Respiratory Rate 15 20 20 Blood Pressure 153/69 H 139/68 Pulse Oximetry 99 100 96 08/27/20 06:00 08/27/20 11:08 08/27/20 11:47 Temperature 98.0 F Pulse Rate 84 89 95 Respiratory Rate 20 16 18 Blood Pressure 143/72 H 131/75 140/82 Pulse Oximetry 97 96 96 08/27/20 14:00 Temperature 98.9 F Pulse Rate 96 Respiratory Rate 20 Blood Pressure 167/71 H Pulse Oximetry 98 Intake/Output Intake/Output: Intake & Output 08/24/20 08/25/20 08/26/20 08/27/20 23:59 23:59 23:59 23:59 Intake Total 1000 430 Balance 1000 430 Meds/Results Medications: Active Medications Generic Name Dose Route Start Last Admin Trade Name Freq PRN
[2020-08-27 16:44] LABS: Glucose Point of Care 199 (65-105)
[2020-08-27 17:34] LABS: Ammonia 96 umol/L (9-30)
[2020-08-27 19:06] LABS: SARS-CoV-2 RNA PCR Negative
[2020-08-27 22:00] VITALS: BP 132/66; PULSE 91; RESP 20; TEMP 36.9; O2SAT 100
[2020-08-27 23:52] LABS: Glucose Point of Care 164 (65-105)
[2020-08-28] MEDS: AMPICILLIN 2 GM/NS 100 ML 2 GM/100 ML BAG IVPB ×5 (04:00→21:00)
[2020-08-28] MEDS: LEVOTHYROXINE SODIUM 125 MCG TABLET PO (05:58)
[2020-08-28 06:00] VITALS: BP 140/68; PULSE 103; RESP 20; TEMP 36.5; O2SAT 97
[2020-08-28 08:00] VITALS: BP 152/81; PULSE 91; RESP 18; O2SAT 92
[2020-08-28] MEDS: metFORMIN HCL 500 MG TABLET 1000 MG PO ×2 (08:04→17:15)
[2020-08-28] MEDS: OMEGA 3 POLYUNSAT FATTY ACIDS 1 GM CAP 2 GM PO ×2 (08:04→17:16)
[2020-08-28] MEDS: DIVALPROEX SODIUM 250 MG TABEC PO ×2 (08:04→17:15)
[2020-08-28] MEDS: hydroCHLOROthiazide 12.5 MG CAPSULE PO (08:05)
[2020-08-28] MEDS: ATORVASTATIN 40 MG TABLET PO (08:05)
[2020-08-28] MEDS: SERTRALINE HCL 50 MG TABLET 100 MG PO (08:05)
[2020-08-28] MEDS: lisinopriL 20 MG TABLET PO (08:05)
[2020-08-28] MEDS: FERROUS SULFATE 324 MG TABLET PO ×2 (08:06→17:15)
[2020-08-28] MEDS: ACYCLOVIR SODIUM IVPB 1,000 MG in DEXTROSE 5% IN WATER 250 ML 266 MG IVPB (09:04)
[2020-08-28 09:45] VITALS: O2SAT 95
[2020-08-28 09:52] LABS: Glucose Point of Care 159 (65-105)
[2020-08-28 10:16] LABS: Vancomycin Trough 11.9 ug/mL (10.0-20.0)
[2020-08-28 12:38] LABS: Glucose Point of Care 288 (65-105)
[2020-08-28] MEDS: INSULIN ASPART (*BKC) 100 UNITS/ML SUB-Q (12:38)
[2020-08-28 14:00] VITALS: BP 123/64; PULSE 106; RESP 18; TEMP 36.6; O2SAT 98
--- NOTE | 2020-08-28 16:21 | PM.IMPN ---
Progress Note: A&P Assessment and Plan (1) Encephalopathy acute: Code(s): G93.40 - Encephalopathy, unspecified Status: Acute Assessment and Plan: Empirically placed on antibiotics with acyclovir Await CSF cultures and PCR for herpes (2) Altered mental status: Qualifiers: Altered mental status type: disorientation Qualified Code(s): R41.0 - Disorientation, unspecified Code(s): R41.82 - Altered mental status, unspecified Status: Acute Assessment and Plan: Unclear etiology Supportive care Ammonia level also elevated so start lactulose and rifaximin (3) Cirrhosis: Qualifiers: Ascites presence: unspecified Hepatic cirrhosis type: unspecified hepatic cirrhosis Qualified Code(s): K74.60 - Unspecified cirrhosis of liver Code(s): K74.60 - Unspecified cirrhosis of liver Status: Acute Assessment and Plan: Started lactulose and rifaximin today with elevated ammonia. INR 1.1 and LFTs only mildly elevated (4) Body mass index (BMI) 40.0-44.9, adult: Code(s): Z68.41 - Body mass index [BMI]40.0-44.9, adult Status: Acute Assessment and Plan: Life style and diet modifications. (5) Diabetes mellitus: Code(s): E11.9 - Type 2 diabetes mellitus without complications Status: Acute Assessment and Plan: Sliding scale and 70 30 insulin on hold. Check A1c (6) DVT prophylaxis: Code(s): Z29.9 - Encounter for prophylactic measures, unspecified Status: Acute Assessment and Plan: start lovenox Subjective Date/time seen: 08/28/20 16:21 Interval history: Date of visit 08/28. 65-year-old morbid obese type 2 diabetic on insulin admitted with altered mental status. Lumbar puncture revealed elevated protein and elevated lymphocytes and CSF fluid. Empirically placed on antibiotics awaiting cultures. Today he is still somewhat confused. Exam Narrative: Exam Narrative: Blood pressure 144/64 pulse is 74 saturating 90% on room air afebrile Pupil equal reactive to light sclera anicteric Lungs clear CV regular rate rhythm Abdomen is soft nontender obese Extremities without edema good distal pulses Neuro alert with no focal deficits but does not know day and relates that he cannot eat but cannot tell me why Objective Data Vital Signs Vital Signs: Vital Signs - 24 hr 08/27/20 22:00 08/28/20 06:00 08/28/20 08:00 Temperature 36.9 C 36.5 C Pulse Rate 91 103 H 91 Respiratory Rate 20 20 18 Blood Pressure 132/66 140/68 152/81 H Pulse Oximetry 100 97 92 08/28/20 09:45 08/28/20 14:00 Temperature 36.6 C Pulse Rate 106 H Respiratory Rate 18 Blood Pressure 123/64 Pulse Oximetry 95 98 Intake/Output Intake/Output: Intake & Output 08/25/20 08/26/20 08/27/20 08/28/20 23:59 23:59 23:59 23:59 Intake Total 1000 2450 1999 Output Total 675 Balance 1000 1775 1999 Meds/Results Medications: Active Medications Generic Name Dose Route Start Last Admin Trade Name Freq PRN Reason Stop Dose Admin Atorvastatin Calcium 40 mg 08/27/20 09:00 08/28/20 08:05 Atorvastatin 40 Mg Tablet PO 40 mg DAILY HEIDY Administration Dextrose 12.5 gm 08/26/20 22:45 Dextrose 50% 25 Gm/50 Ml Syringe IV PUSH PRN PRN Hypoglycemia Protocol Diclofenac Sodium 75 mg 08/26/20 23:00 08/27/20 10:14 Diclofenac Sod 75 Mg Tablet.Ec PO Not Given BIDWM HEIDY Divalproex Sodium 250 mg 08/26/20 23:00 08/28/20 08:04 Divalproex Sodium 250 Mg Tabec PO 250 mg BIDWM HEIDY Administration Ferrous Sulfate 324 mg 08/26/20 23:00 08/28/20 08:06 Ferrous Sulfate 324 Mg Tablet PO 324 mg BIDWM HEIDY Administration Fish Oil 2 gm 08/27/20 08:00 08/28/20 08:04 [place] 3 Polyunsat Fatty Acids 1 Gm Cap PO 2 gm BIDWM HEIDY Administration Glucagon 1 mg 08/26/20 22:45 Glucagon For Inj 1 Mg Vial IM PRN PRN Hypoglycemia Protocol Glucose 15 gm 08/26/20 22:45 Glu
[2020-08-28 17:33] LABS: Glucose Point of Care 190 (65-105)
[2020-08-28] MEDS: LACTULOSE 20 GM/30 ML UDC PO (18:54)
[2020-08-28] MEDS: ENOXAPARIN 40 MG/0.4 ML SYRINGE SUB-Q (20:46)
[2020-08-28] MEDS: PANTOPRAZOLE SOD SESQUIHYDRATE 20 MG TAB PO (20:46)
[2020-08-28] MEDS: rifAXIMin 550 MG TABLET PO (20:46)
[2020-08-28 20:59] LABS: Glucose Point of Care 231 (65-105)
[2020-08-28 21:33] VITALS: BP 123/50; PULSE 106; RESP 18; TEMP 36.8; O2SAT 94
[2020-08-28] MEDS: ACYCLOVIR SODIUM IVPB 800 MG in DEXTROSE 5% IN WATER 250 ML 266 MG IVPB (22:59)
[2020-08-28] MEDS: ACETAMINOPHEN 325 MG TABLET 650 MG PO (23:03)
[2020-08-29] MEDS: AMPICILLIN 2 GM/NS 100 ML 2 GM/100 ML BAG IVPB ×6 (00:44→19:45)
[2020-08-29 06:00] VITALS: BP 136/54; PULSE 95; RESP 18; TEMP 36.2; O2SAT 97
[2020-08-29] MEDS: LEVOTHYROXINE SODIUM 125 MCG TABLET PO (06:05)
[2020-08-29] MEDS: ACYCLOVIR SODIUM IVPB 800 MG in DEXTROSE 5% IN WATER 250 ML 266 MG IVPB ×3 (06:44→23:02)
[2020-08-29 06:48] LABS: Basophils Absolute Auto 0.1 K/mm3 (0.0-0.1); Basophils Percent Auto 0.9 % (0.2-1.2); Eosinophils Absolute Auto 0.4 K/mm3 (0-0.3); Eosinophils Percent Auto 6.2 % (0-4.4); Hemoglobin 12.7 g/dL (14.0-18.0); Immature Granulocyte Absolute 0.01 K/mm3 (0.00-0.031); Immature Granulocyte Percent A 0.2 % (0-0.5); Lymphocytes Absolute Auto 1.85 K/mm3 (0.9-3.2); Lymphocytes Percent Auto 28.6 % (18.3-44.2); Mean Corpuscular HGB Conc 34.3 g/dl (32-36); Mean Corpuscular Hemoglobin 31.1 pg (26-34); Mean Corpuscular Volume 90.5 fl (80-100); Mean Platelet Volume 9.7 fl (7.4-10.4); Monocytes Absolute Auto 0.8 K/mm3 (0.1-0.6); Monocytes Percent Auto 12.2 % (2.6-8.5); Neutrophils Absolute Auto 3.4 K/mm3 (1.3-6.7); Neutrophils Percent Auto 51.9 % (45.5-73.1); Platelet Count Result 110 k/mm3 (150-375); Red Blood Count 4.09 M/mm3 (4.6-6.20); Red Cell Distribution Width 14.6 % (11.5-14.5); White Blood Count 6.5 K/mm3 (4.5-10.0)
[2020-08-29 06:50] LABS: Hemoglobin A1C 5.5 % (<5.7)
[2020-08-29 06:57] LABS: Alanine Aminotransferase 46 U/L (4-50); Alkaline Phosphatase 76 U/L (38-126); Anion Gap 11 mmol/L (8-16); Aspartate Amino Transferase 71 U/L (17-59); Bilirubin,Total 1.1 mg/dL (0.2-1.3); Blood Urea Nitrogen 12 mg/dL (9-20); Calcium 8.8 mg/dL (8.4-10.2); Carbon Dioxide 24 mmol/L (22-30); Chloride 103 mmol/L (98-107); Estimated CRCL calculation 107 ml/min; Estimated Glomerular Filt Rate > 60; Glucose 218 mg/dL (75-110); Sodium 138 mmol/L (137-145)
[2020-08-29 08:00] VITALS: PULSE 95; RESP 18; O2SAT 97
[2020-08-29] MEDS: FERROUS SULFATE 324 MG TABLET PO ×2 (08:38→17:48)
[2020-08-29] MEDS: DIVALPROEX SODIUM 250 MG TABEC PO ×2 (08:38→17:48)
[2020-08-29] MEDS: SERTRALINE HCL 50 MG TABLET 100 MG PO (08:39)
[2020-08-29] MEDS: OMEGA 3 POLYUNSAT FATTY ACIDS 1 GM CAP 2 GM PO ×2 (08:39→17:48)
[2020-08-29] MEDS: metFORMIN HCL 500 MG TABLET 1000 MG PO ×2 (08:39→17:48)
[2020-08-29] MEDS: hydroCHLOROthiazide 12.5 MG CAPSULE PO (08:39)
[2020-08-29] MEDS: lisinopriL 20 MG TABLET PO (08:39)
[2020-08-29] MEDS: rifAXIMin 550 MG TABLET PO ×2 (08:39→20:20)
[2020-08-29] MEDS: ATORVASTATIN 40 MG TABLET PO (08:39)
[2020-08-29] MEDS: POTASSIUM CHLORIDE 20 MEQ TABLET 40 MEQ PO ×2 (08:43→12:34)
[2020-08-29] MEDS: INSULIN ASPART (*BKC) 100 UNITS/ML SUB-Q ×3 (08:48→17:49)
[2020-08-29 10:36] LABS: Glucose Point of Care 265 (65-105)
[2020-08-29] MEDS: LACTULOSE 20 GM/30 ML UDC PO (11:44)
[2020-08-29 12:21] LABS: Glucose Point of Care 342 (65-105)
[2020-08-29] MEDS: traMADol HCL (*CRX) 50 MG TABLET PO ×2 (12:35→20:30)
[2020-08-29 14:00] VITALS: BP 113/48; PULSE 103; RESP 16; TEMP 36.4; O2SAT 98
--- NOTE | 2020-08-29 15:34 | PM.IMPN ---
Progress Note: A&P Assessment and Plan (1) Encephalopathy acute: Code(s): G93.40 - Encephalopathy, unspecified Status: Acute Assessment and Plan: Empirically placed on antibiotics with acyclovir Await CSF cultures and PCR for herpes Much clearer today and probable at baseline according to (2) Altered mental status: Qualifiers: Altered mental status type: disorientation Qualified Code(s): R41.0 - Disorientation, unspecified Code(s): R41.82 - Altered mental status, unspecified Status: Acute Assessment and Plan: Unclear etiology Supportive care Ammonia level also elevated so started lactulose and rifaximin 08/28, (3) Cirrhosis: Qualifiers: Hepatic cirrhosis type: unspecified hepatic cirrhosis Ascites presence: unspecified Qualified Code(s): K74.60 - Unspecified cirrhosis of liver Code(s): K74.60 - Unspecified cirrhosis of liver Status: Acute Assessment and Plan: Started lactulose and rifaximin 08/28 with elevated ammonia. INR 1.1 and LFTs only mildly elevated AST US 03/30/20 nodular liver and spleenomegaly compatible with (4) Body mass index (BMI) 40.0-44.9, adult: Code(s): Z68.41 - Body mass index [BMI]40.0-44.9, adult Status: Acute Assessment and Plan: Life style and diet modifications. (5) Diabetes mellitus: Code(s): E11.9 - Type 2 diabetes mellitus without complications Status: Acute Assessment and Plan: Sliding scale and 70 30 insulin was on hold and will start at 30 q 12h (home dose 300qd) A1c only 5.5 (6) DVT prophylaxis: Code(s): Z29.9 - Encounter for prophylactic measures, unspecified Status: Acute Assessment and Plan: lovenox Subjective Date/time seen: 08/29/20 15:34 Interval history: Date of visit 08/29. 65-year-old morbid obese type 2 diabetic on insulin admitted with altered mental status. Lumbar puncture revealed elevated protein and elevated lymphocytes in CSF fluid. Empirically placed on antibiotics awaiting cultures. Today he is much more coherent with only complaints of chronic back pain and loose stools with lactulose. Exam Narrative: Exam Narrative: Blood pressure 114/48 pulse is 100 saturating 98% on room air afebrile Pupil equal reactive to light sclera anicteric Lungs clear CV regular rate rhythm Abdomen is soft nontender obese Extremities without edema good distal pulses Neuro alert with no focal deficits and oriented x4( states back to his baseline) Objective Data Vital Signs Vital Signs: Vital Signs - 24 hr 08/28/20 21:33 08/29/20 06:00 08/29/20 08:00 Temperature 36.8 C 36.2 C L Pulse Rate 106 H 95 95 Respiratory Rate 18 18 18 Blood Pressure 123/50 L 136/54 L Pulse Oximetry 94 97 97 08/29/20 14:00 Temperature 36.4 C L Pulse Rate 103 H Respiratory Rate 16 Blood Pressure 113/48 L Pulse Oximetry 98 Intake/Output Intake/Output: Intake & Output 08/26/20 08/27/20 08/28/20 08/29/20 23:59 23:59 23:59 23:59 Intake Total 1000 2450 3656 1985 Output Total 675 Balance 1000 1775 3656 1985 Meds/Results Medications: Active Medications Generic Name Dose Route Start Last Admin Trade Name Freq PRN Reason Stop Dose Admin Acetaminophen 650 mg 08/28/20 22:24 08/28/20 23:03 Acetaminophen 325 Mg Tablet PO 650 mg Q6H PRN Administration Mild Pain (1-3) or Fever Atorvastatin Calcium 40 mg 08/27/20 09:00 08/29/20 08:39 Atorvastatin 40 Mg Tablet PO 40 mg DAILY HEIDY Administration Dextrose 12.5 gm 08/26/20 22:45 Dextrose 50% 25 Gm/50 Ml Syringe IV PUSH PRN PRN Hypoglycemia Protocol Diclofenac Sodium 75 mg 08/26/20 23:00 08/27/20 10:14 Diclofenac Sod 75 Mg Tablet.Ec PO Not Given BIDWM HEIDY Divalproex Sodium 250 mg 08/26/20 23:00 08/29/20 08:38 Divalproex Sodium 250 Mg Tabec PO 250 mg BIDWM HEIDY Administration Enoxaparin Sodium 40 mg 08/28/20 21:00 08/28
--- NOTE | 2020-08-29 16:43 | ECG_ITS ---
Measurements Intervals [place] Rate: 98 P: 66 [place]: 176 QRS: -24 QRSD: 92 T: 85 QT: 384 QTc: 490 Interpretive Statements SINUS RHYTHM LEFT VENTRICULAR HYPERTROPHY WITH ST-T CHANGE BORDERLINE R WAVE PROGRESSION, ANTERIOR LEADS BASELINE ARTIFACT- I, II, III, AVR, AVL, V1 BORDERLINE ECG Electronically Signed On 08-29-2020 18:23:59 DIRECTOR OF RECRUITMENT by Jamal Calle D.O.
--- NOTE | 2020-08-29 16:45 | PC.NURSE ---
patient c/o feeling funny like he can feel his heart beating. B/P 102/41, P 99. Dr. Howard informed. ordered EKG
[2020-08-29 17:31] LABS: Glucose Point of Care 254 (65-105)
[2020-08-29] MEDS: INSULIN HUMAN ISOPHAN/REGULAR 70/30 (*BKC) 100 UNITS/ML 30 UNITS SUB-Q (17:49)
--- NOTE | 2020-08-29 18:30 | PC.NURSE ---
EKG result shown to Dr. Howard, no new orders, NSR
[2020-08-29 19:26] LABS: Vancomycin Trough 18.2 ug/mL (10.0-20.0)
[2020-08-29] MEDS: ENOXAPARIN 40 MG/0.4 ML SYRINGE SUB-Q (20:19)
[2020-08-29] MEDS: PANTOPRAZOLE SOD SESQUIHYDRATE 20 MG TAB PO (20:20)
[2020-08-29 21:41] VITALS: BP 123/45; PULSE 102; RESP 18; TEMP 37; O2SAT 94
[2020-08-30] MEDS: AMPICILLIN 2 GM/NS 100 ML 2 GM/100 ML BAG IVPB ×7 (00:10→23:54)
[2020-08-30 02:19] LABS: Glucose Point of Care 238 (65-105)
[2020-08-30] MEDS: LEVOTHYROXINE SODIUM 125 MCG TABLET PO (05:37)
[2020-08-30] MEDS: traMADol HCL (*CRX) 50 MG TABLET PO ×2 (05:38→21:48)
[2020-08-30 05:53] VITALS: BP 112/49; PULSE 79; RESP 18; TEMP 36.4; O2SAT 100
[2020-08-30] MEDS: INSULIN HUMAN ISOPHAN/REGULAR 70/30 (*BKC) 100 UNITS/ML 30 UNITS SUB-Q (05:55)
[2020-08-30] MEDS: ACYCLOVIR SODIUM IVPB 800 MG in DEXTROSE 5% IN WATER 250 ML 266 MG IVPB ×3 (05:59→22:48)
[2020-08-30 06:41] LABS: Anion Gap 9 mmol/L (8-16); Blood Urea Nitrogen 15 mg/dL (9-20); Calcium 8.9 mg/dL (8.4-10.2); Carbon Dioxide 24 mmol/L (22-30); Chloride 103 mmol/L (98-107); Estimated CRCL calculation 119 ml/min; Estimated Glomerular Filt Rate > 60; Glucose 221 mg/dL (75-110); Potassium 3.8 mmol/L (3.4-5.0); Sodium 136 mmol/L (137-145)
[2020-08-30 08:45] LABS: Glucose Point of Care 230 (65-105)
[2020-08-30] MEDS: INSULIN ASPART (*BKC) 100 UNITS/ML SUB-Q ×3 (09:23→17:08)
[2020-08-30] MEDS: OMEGA 3 POLYUNSAT FATTY ACIDS 1 GM CAP 2 GM PO ×2 (09:27→17:10)
[2020-08-30] MEDS: SERTRALINE HCL 50 MG TABLET 100 MG PO (09:27)
[2020-08-30] MEDS: metFORMIN HCL 500 MG TABLET 1000 MG PO ×2 (09:28→17:11)
[2020-08-30] MEDS: rifAXIMin 550 MG TABLET PO ×2 (09:28→21:50)
[2020-08-30] MEDS: ATORVASTATIN 40 MG TABLET PO (09:28)
[2020-08-30] MEDS: DIVALPROEX SODIUM 250 MG TABEC PO ×2 (09:28→17:11)
[2020-08-30] MEDS: FERROUS SULFATE 324 MG TABLET PO ×2 (09:28→17:12)
[2020-08-30] MEDS: hydroCHLOROthiazide 12.5 MG CAPSULE PO (09:28)
[2020-08-30] MEDS: LACTULOSE 20 GM/30 ML UDC PO (09:29)
[2020-08-30] MEDS: lisinopriL 20 MG TABLET PO (09:29)
--- NOTE | 2020-08-30 09:33 | P.CDI_ITS ---
CDI Query Clarification Request -Encephalopathy, acute has been documented - Ammonia level also elevated so started lactulose and rifaximin documented - CSF studies to r/o meningitis documented in H&P. Please further specify type of encephalopathy: * Metabolic * Toxic * Hepatic * Hypertensive * Other * Unable to determine
[2020-08-30 12:40] LABS: Glucose Point of Care 247 (65-105)
[2020-08-30 14:00] VITALS: BP 138/65; PULSE 102; RESP 18; TEMP 36.9; O2SAT 98
--- NOTE | 2020-08-30 16:31 | PM.IMPN ---
Progress Note: A&P Assessment and Plan (1) Encephalopathy acute: Code(s): G93.40 - Encephalopathy, unspecified Status: Acute Assessment and Plan: Empirically placed on antibiotics with acyclovir CSF cultures and PCR for herpes still pending Much clearer each day and probable at baseline according to Etiology not totally clear probable multifactorial encephalopathy, metabolic, possibly hepatic, and possibly inflammatory (2) Altered mental status: Qualifiers: Altered mental status type: disorientation Qualified Code(s): R41.0 - Disorientation, unspecified Code(s): R41.82 - Altered mental status, unspecified Status: Acute Assessment and Plan: Unclear etiology Supportive care Ammonia level also elevated so started lactulose and rifaximin 08/28, Recheck ammonia level a.m. 08/31 (3) Cirrhosis: Qualifiers: Hepatic cirrhosis type: unspecified hepatic cirrhosis Ascites presence: unspecified Qualified Code(s): K74.60 - Unspecified cirrhosis of liver Code(s): K74.60 - Unspecified cirrhosis of liver Status: Acute Assessment and Plan: Started lactulose and rifaximin 08/28 with elevated ammonia. INR 1.1 and LFTs only mildly elevated AST US 03/30/20 nodular liver and spleenomegaly compatible with Suspect all Srinivasan but will check hepatitis serology and iron studies in a.m. Platelet remains in the low 100s (4) Body mass index (BMI) 40.0-44.9, adult: Code(s): Z68.41 - Body mass index [BMI]40.0-44.9, adult Status: Acute Assessment and Plan: Life style and diet modifications. (5) Diabetes mellitus: Code(s): E11.9 - Type 2 diabetes mellitus without complications Status: Acute Assessment and Plan: Sliding scale and 70 30 insulin was on hold and restarted 08/29 at 30 q 12h (home dose 300qd) A1c only 5.5, increase 70 30-35 units b.i.d. with blood sugars consistently in the 200s (6) DVT prophylaxis: Code(s): Z29.9 - Encounter for prophylactic measures, unspecified Status: Acute Assessment and Plan: lovenox Subjective Date/time seen: 08/30/20 16:31 Interval history: Date of visit 08/30. 65-year-old morbid obese type 2 diabetic on insulin admitted with altered mental status. Lumbar puncture revealed elevated protein and elevated lymphocytes in CSF fluid. Empirically placed on antibiotics awaiting cultures. Today remains more coherent with only complaints of chronic back pain and loose stools with lactulose and wanting to be discharged. Exam Narrative: Exam Narrative: Blood pressure 138/64 pulse is 100 saturating 98% on room air afebrile Pupil equal reactive to light sclera anicteric Lungs clear CV regular rate rhythm Abdomen is soft nontender obese Extremities without edema good distal pulses Neuro alert with no focal deficits and oriented x4( states back to his baseline) Objective Data Vital Signs Vital Signs: Vital Signs - 24 hr 08/29/20 21:41 08/30/20 05:53 08/30/20 14:00 Temperature 37.0 C 36.4 C 36.9 C Pulse Rate 102 H 79 102 H Respiratory Rate 18 18 18 Blood Pressure 123/45 L 112/49 L 138/65 Pulse Oximetry 94 100 98 Intake/Output Intake/Output: Intake & Output 08/27/20 08/28/20 08/29/20 08/30/20 23:59 23:59 23:59 23:59 Intake Total 2450 3656 4442 3558 Output Total 675 Balance 1775 3656 4442 3558 Meds/Results Medications: Active Medications Generic Name Dose Route Start Last Admin Trade Name Freq PRN Reason Stop Dose Admin Acetaminophen 650 mg 08/28/20 22:24 08/28/20 23:03 Acetaminophen 325 Mg Tablet PO 650 mg Q6H PRN Administration Mild Pain (1-3) or Fever Atorvastatin Calcium 40 mg 08/27/20 09:00 08/30/20 09:28 Atorvastatin 40 Mg Tablet PO 40 mg DAILY HEIDY Administration Dextrose 12.5 gm 08/26/20 22:45 Dextrose 50% 25 Gm/50 Ml Syringe IV PUSH PRN PRN Hypoglycemia Protocol Diclofenac Sodium 75 mg
[2020-08-30] MEDS: INSULIN HUMAN ISOPHAN/REGULAR 70/30 (*BKC) 100 UNITS/ML 35 UNITS SUB-Q (17:09)
[2020-08-30 17:13] LABS: Glucose Point of Care 217 (65-105)
[2020-08-30 20:34] LABS: Glucose Point of Care 221 (65-105)
[2020-08-30] MEDS: PANTOPRAZOLE SOD SESQUIHYDRATE 20 MG TAB PO (21:50)
[2020-08-30 22:00] VITALS: BP 115/76; PULSE 99; RESP 20; TEMP 36.6; O2SAT 96
[2020-08-30 22:37] VITALS: PULSE 94; RESP 14; O2SAT 96
[2020-08-30] MEDS: ENOXAPARIN 40 MG/0.4 ML SYRINGE SUB-Q (22:53)
[2020-08-31 02:32] VITALS: PULSE 83; RESP 24; O2SAT 94
[2020-08-31] MEDS: AMPICILLIN 2 GM/NS 100 ML 2 GM/100 ML BAG IVPB (04:57)
[2020-08-31 06:00] VITALS: BP 116/54; PULSE 94; RESP 20; TEMP 37.1; O2SAT 100
[2020-08-31 06:01] LABS: Basophils Percent Auto 1.1 % (0.2-1.2); Eosinophils Absolute Auto 0.4 K/mm3 (0-0.3); Eosinophils Percent Auto 10.5 % (0-4.4); Hemoglobin 11.2 g/dL (14.0-18.0); Immature Granulocyte Absolute 0.01 K/mm3 (0.00-0.031); Immature Granulocyte Percent A 0.3 % (0-0.5); Immature Platelet Fraction Pct 2.1 % (0.9-11.2); Lymphocytes Absolute Auto 1.31 K/mm3 (0.9-3.2); Lymphocytes Percent Auto 37.2 % (18.3-44.2); Mean Corpuscular HGB Conc 33.9 g/dl (32-36); Mean Corpuscular Hemoglobin 31.7 pg (26-34); Mean Corpuscular Volume 93.5 fl (80-100); Mean Platelet Volume 9.6 fl (7.4-10.4); Monocytes Absolute Auto 0.4 K/mm3 (0.1-0.6); Monocytes Percent Auto 10.2 % (2.6-8.5); Neutrophils Absolute Auto 1.4 K/mm3 (1.3-6.7); Neutrophils Percent Auto 40.7 % (45.5-73.1); Platelet Count Result 90 k/mm3 (150-375); Red Blood Count 3.53 M/mm3 (4.6-6.20); Red Cell Distribution Width 14.3 % (11.5-14.5); White Blood Count 3.5 K/mm3 (4.5-10.0)
[2020-08-31] MEDS: LEVOTHYROXINE SODIUM 125 MCG TABLET PO (06:02)
[2020-08-31] MEDS: ACYCLOVIR SODIUM IVPB 800 MG in DEXTROSE 5% IN WATER 250 ML 266 MG IVPB ×2 (06:03→15:44)
[2020-08-31 06:12] LABS: Alanine Aminotransferase 42 U/L (4-50); Albumin Level 3.5 g/dL (3.5-5.1); Alkaline Phosphatase 65 U/L (38-126); Ammonia 23 umol/L (9-30); Anion Gap 7 mmol/L (8-16); Aspartate Amino Transferase 56 U/L (17-59); Bilirubin,Total 0.7 mg/dL (0.2-1.3); Blood Urea Nitrogen 11 mg/dL (9-20); Carbon Dioxide 27 mmol/L (22-30); Chloride 102 mmol/L (98-107); Estimated CRCL calculation 135 ml/min; Estimated Glomerular Filt Rate > 60; Glucose 180 mg/dL (75-110); Potassium 3.7 mmol/L (3.4-5.0); Sodium 136 mmol/L (137-145)
[2020-08-31 06:45] LABS: Iron 58 ug/dL (49-181)
[2020-08-31 06:55] LABS: Percent Iron Saturation 16 % (20-50)
[2020-08-31 07:19] LABS: Hepatitis B Surface Antigen Negative (Negative)
[2020-08-31 07:25] LABS: HAV RESULT Negative (Negative); Hepatitis B Core IgM Result Negative (Negative)
[2020-08-31 07:37] LABS: Hepatitis C Virus Antibody Negative (Negative)
[2020-08-31 08:00] VITALS: PULSE 94; RESP 20; O2SAT 100
[2020-08-31] MEDS: INSULIN HUMAN ISOPHAN/REGULAR 70/30 (*BKC) 100 UNITS/ML 35 UNITS SUB-Q ×2 (08:21→17:56)
[2020-08-31] MEDS: traMADol HCL (*CRX) 50 MG TABLET PO ×2 (08:21→21:24)
[2020-08-31] MEDS: hydroCHLOROthiazide 12.5 MG CAPSULE PO (08:22)
[2020-08-31] MEDS: rifAXIMin 550 MG TABLET PO ×2 (08:22→21:27)
[2020-08-31] MEDS: metFORMIN HCL 500 MG TABLET 1000 MG PO ×2 (08:27→17:58)
[2020-08-31] MEDS: ATORVASTATIN 40 MG TABLET PO (08:27)
[2020-08-31] MEDS: FERROUS SULFATE 324 MG TABLET PO ×2 (08:27→16:58)
[2020-08-31] MEDS: DIVALPROEX SODIUM 250 MG TABEC PO ×2 (08:27→16:58)
[2020-08-31] MEDS: SERTRALINE HCL 50 MG TABLET 100 MG PO (08:28)
[2020-08-31] MEDS: lisinopriL 20 MG TABLET PO (08:28)
[2020-08-31 09:31] LABS: Glucose Point of Care 155 (65-105)
[2020-08-31 12:18] LABS: Glucose Point of Care 147 (65-105)
[2020-08-31] MEDS: OMEGA 3 POLYUNSAT FATTY ACIDS 1 GM CAP 2 GM PO ×2 (12:49→16:58)
[2020-08-31 14:00] VITALS: BP 119/50; PULSE 83; RESP 18; TEMP 36.8; O2SAT 97
--- NOTE | 2020-08-31 17:22 | PM.IMPN ---
Progress Note: A&P Assessment and Plan (1) Encephalopathy acute: Code(s): G93.40 - Encephalopathy, unspecified Status: Acute Assessment and Plan: Empirically placed on antibiotics with acyclovir CSF cultures still now growth and PCR for herpes still pending Much clearer each day and probable at baseline according to Etiology not totally clear probable multifactorial encephalopathy, metabolic, possibly hepatic, and possibly inflammatory stop antibiotics with cultures still neg after 4 days (2) Altered mental status: Qualifiers: Altered mental status type: disorientation Qualified Code(s): R41.0 - Disorientation, unspecified Code(s): R41.82 - Altered mental status, unspecified Status: Acute Assessment and Plan: Unclear etiology Supportive care Ammonia level also elevated so started lactulose and rifaximin 08/28, ammonia level this a.m. normal at 23 (3) Cirrhosis: Qualifiers: Hepatic cirrhosis type: unspecified hepatic cirrhosis Ascites presence: unspecified Qualified Code(s): K74.60 - Unspecified cirrhosis of liver Code(s): K74.60 - Unspecified cirrhosis of liver Status: Acute Assessment and Plan: Started lactulose and rifaximin 08/28 with elevated ammonia. INR 1.1 and LFTs now all normal US 03/30/20 nodular liver and spleenomegaly compatible with cirrhosis Suspect all Srinivasan and hepatitis serology negative and iron studies no overload Platelet remains in the low 100s and down to 90k today (4) Body mass index (BMI) 40.0-44.9, adult: Code(s): Z68.41 - Body mass index [BMI]40.0-44.9, adult Status: Acute Assessment and Plan: Life style and diet modifications. (5) Diabetes mellitus: Code(s): E11.9 - Type 2 diabetes mellitus without complications Status: Acute Assessment and Plan: Sliding scale and 70 30 insulin was on hold and restarted 08/29 at 30 q 12h (home dose 300qd) A1c only 5.5, increase 70 30 to -35 units b.i.d. with blood sugars consistently in the 200s. Patient uses modified SS at home (6) DVT prophylaxis: Code(s): Z29.9 - Encounter for prophylactic measures, unspecified Status: Acute Assessment and Plan: lovenox, and with plat dipping below 100K will hold Subjective Date/time seen: 08/31/20 17:22 Interval history: Date of visit 08/31. 65-year-old morbid obese type 2 diabetic on insulin admitted with altered mental status. Lumbar puncture revealed elevated protein and elevated lymphocytes in CSF fluid. Empirically placed on antibiotics and acyclovir awaiting cultures. Today remains more coherent with only complaints of chronic back pain and wanting to be discharged. Exam Narrative: Exam Narrative: Blood pressure 120/56 pulse is 86 saturating 98% on room air afebrile Pupil equal reactive to light sclera anicteric Lungs clear CV regular rate rhythm Abdomen is soft nontender obese Extremities without edema good distal pulses Neuro alert with no focal deficits and oriented x4( states back to his baseline 08/29) Objective Data Vital Signs Vital Signs: Vital Signs - 24 hr 08/30/20 22:00 08/30/20 22:37 08/31/20 02:32 Temperature 36.6 C Pulse Rate 99 94 83 Respiratory Rate 20 14 24 H Blood Pressure 115/76 Pulse Oximetry 96 96 94 08/31/20 06:00 08/31/20 08:00 08/31/20 14:00 Temperature 37.1 C 36.8 C Pulse Rate 94 94 83 Respiratory Rate 20 20 18 Blood Pressure 116/54 L 119/50 L Pulse Oximetry 100 100 97 Intake/Output Intake/Output: Intake & Output 08/28/20 08/29/20 08/30/20 08/31/20 23:59 23:59 23:59 23:59 Intake Total 3656 4442 5414 2906 Balance 3656 4442 5414 2906 Meds/Results Medications: Active Medications Generic Name Dose Route Start Last Admin Trade Name Bartoloq PRN Reason Stop Dose Admin Acetaminophen 650 mg 08/28/20 22:24 08/28/20 23:03 Acetaminophen 325 Mg Tablet PO 650 mg Q6H PRN Administration Mild Pain (1-
[2020-08-31 17:55] LABS: Glucose Point of Care 170 (65-105)
[2020-08-31 21:23] VITALS: BP 142/67; PULSE 100; RESP 20; TEMP 36.8; O2SAT 97
[2020-08-31] MEDS: PANTOPRAZOLE SOD SESQUIHYDRATE 20 MG TAB PO (21:27)
[2020-08-31 22:11] LABS: Glucose Point of Care 142 (65-105)
[2020-08-31 22:57] VITALS: RESP 23
[2020-09-01 03:08] VITALS: RESP 20
[2020-09-01] MEDS: ACYCLOVIR SODIUM IVPB 800 MG in DEXTROSE 5% IN WATER 250 ML 266 MG IVPB (05:30)
[2020-09-01] MEDS: LEVOTHYROXINE SODIUM 125 MCG TABLET PO (05:30)
[2020-09-01 06:00] VITALS: BP 117/55; PULSE 91; RESP 20; TEMP 37.1; O2SAT 94
[2020-09-01 08:21] LABS: Glucose Point of Care 193 (65-105)
[2020-09-01] MEDS: DIVALPROEX SODIUM 250 MG TABEC PO (08:48)
[2020-09-01] MEDS: FERROUS SULFATE 324 MG TABLET PO (08:48)
[2020-09-01] MEDS: SERTRALINE HCL 50 MG TABLET 100 MG PO (08:49)
[2020-09-01] MEDS: hydroCHLOROthiazide 12.5 MG CAPSULE PO (08:49)
[2020-09-01] MEDS: rifAXIMin 550 MG TABLET PO (08:49)
[2020-09-01] MEDS: metFORMIN HCL 500 MG TABLET 1000 MG PO (08:49)
[2020-09-01] MEDS: ATORVASTATIN 40 MG TABLET PO (08:49)
[2020-09-01] MEDS: OMEGA 3 POLYUNSAT FATTY ACIDS 1 GM CAP 2 GM PO (08:49)
[2020-09-01] MEDS: lisinopriL 20 MG TABLET PO (08:49)
[2020-09-01] MEDS: INSULIN HUMAN ISOPHAN/REGULAR 70/30 (*BKC) 100 UNITS/ML 35 UNITS SUB-Q (09:05)
[2020-09-01 12:12] LABS: Glucose Point of Care 129 (65-105)
--- NOTE | 2020-09-02 17:38 | PM.DS ---
DS: Admitting Diagnosis Admitting Diagnosis Admitting Diagnosis: Altered mental status with encephalopathy DS: Discharge Diagnosis Discharge Diagnosis (1) Encephalopathy acute: Code(s): G93.40 - Encephalopathy, unspecified Status: Acute Assessment and Plan: Empirically placed on antibiotics with acyclovir CSF cultures now growth and PCR for herpes still pending at discharge By 08/29/2020 patient was much clearer mentally just 24 hours after acyclovir and lactulose with rifaximin Much clearer each day and probable at baseline according to Etiology not totally clear probable multifactorial encephalopathy, metabolic, possibly hepatic, and possibly inflammatory stopped antibiotics with cultures still neg after 4 days (2) Altered mental status: Qualifiers: Altered mental status type: disorientation Qualified Code(s): R41.0 - Disorientation, unspecified Code(s): R41.82 - Altered mental status, unspecified Status: Acute Assessment and Plan: Unclear etiology as above Ammonia level also elevated at 93 so started lactulose and rifaximin 08/28, ammonia level 08/31 normal at 23 (3) Cirrhosis: Qualifiers: Ascites presence: unspecified Hepatic cirrhosis type: unspecified hepatic cirrhosis Qualified Code(s): K74.60 - Unspecified cirrhosis of liver Code(s): K74.60 - Unspecified cirrhosis of liver Status: Acute Assessment and Plan: Started lactulose and rifaximin 08/28 with elevated ammonia. INR 1.1 and LFTs now all normal US 03/30/20 nodular liver and splenomegaly compatible with cirrhosis Suspect all Srinivasan and hepatitis serology negative and iron studies no overload with normal ferritin Platelet remains in the low 100s and down to 90k 08/30 Significantly LFTs were all normal range 08/31/2020 (4) Diabetes mellitus: Code(s): E11.9 - Type 2 diabetes mellitus without complications Status: Acute Assessment and Plan: Sliding scale and 70/30 insulin was on hold and restarted 08/29 at 30 q 12h (home according to patient up to 200 units qd) A1c only 5.5, increased 70/30 to 35 units b.i.d. with blood sugars consistently in the 200s. Patient uses modified SS at home (5) Hypertension: Code(s): I10 - Essential (primary) hypertension Status: Acute Assessment and Plan: Blood pressure well controlled and restarted his Juwan and diuretic. (6) Thrombocytopenia: Code(s): D69.6 - Thrombocytopenia, unspecified Status: Acute Assessment and Plan: Platelets remained in low 100s and did to 90 K 08/31/2020. He has known thrombocytopenia and his abdominal sonogram 03/30/2020 revealed the splenomegaly with evidence of cirrhosis. This was the most likely explanation and he will follow-up with his primary. DS: Summary Hospital Course Hospital Course: Date of discharge 09/01/2020. Date of this dictation 09/02/20 65-year-old hypertensive obese type 2 diabetic admitted with altered mental status. There was no obvious source of any infection initially and CT scan was unremarkable so LP was performed. There was elevated protein and glucose with lymphocytes and monocytes upper limit normal. Ammonia level was also found to be elevated at 96. He was empirically treated with antibiotics broad-spectrum for possible meningitis until cultures remain negative at 4 days. Acyclovir was started on the and continued through the . At the time of discharge PCR for herpes simplex was still pending. We felt the patient was very unlikely to have herpetic encephalitis since he improved so rapidly after just 1 day of acyclovir and he was very anxious to be discharge. Repeat ammonia level on the was down to 23 and his mental status improved dramatically on the He will have repeat complete metabolic profile and CBC drawn in 1 week Time Spent with Patient Time attestation: Total time spent providing and/or coordinating discharge services:
[2020-09-03 07:13] LABS: Herpes Simplex Type 1 DNA PCR Not Detected (Not Detected); Herpes Simplex Type 2 DNA PCR Not Detected (Not Detected)
== END 2020-09-01 13:00 | disposition home or self-care (01) | DRG 71 ==
LOC: ANHED 15:17 → ANH3MEDSUR 18:03
PROVIDERS: Emergency Medicine; Internal Medicine; Admitting Provider Internal Medicine; Emergency Provider Emergency Medicine; PCP Internal Medicine; Visit Provider Internal Medicine
DX: G93.40 Encephalopathy, unspecified (principal); Z68.41 Body mass index [BMI] 40.0-44.9, adult; E66.01 Morbid (severe) obesity due to excess calories; D69.6 Thrombocytopenia, unspecified; Z20.822 Contact with and (suspected) exposure to COVID-19; E11.42 Type 2 diabetes mellitus with diabetic polyneuropathy; E78.2 Mixed hyperlipidemia; K74.60 Unspecified cirrhosis of liver; G47.33 Obstructive sleep apnea (adult) (pediatric); I10 Essential (primary) hypertension; E03.9 Hypothyroidism, unspecified; H54.62 Unqualified visual loss, left eye, normal vision right eye; F41.8 Other specified anxiety disorders; Z79.4 Long term (current) use of insulin; Z79.899 Other long term (current) drug therapy; Z86.19 Personal history of other infectious and parasitic diseases; Z87.891 Personal history of nicotine dependence; Z96.82 Presence of neurostimulator
CPT/HCPCS: 36415; 36600; 62328; 70450; 71045; 80048; 80074; 80076; 80202; 81001; 82140; 82306; 82375; 82607; 82728; 82746; 82805; 82945; 82948; 83036; 83050; 83540; 83550; 83605; 84157; 84443; 84484; 85025; 85055; 85610; 85730; 87015; 87040; 87070; 87116; 87206; 87255; 87529; 88108; 89051; 93005; 94660; 96360; 96361; 96365; 99285; A9270; C9803; G0378; J0133; J0290; J0696; J1650; J1815; J3370; J7060; J7120; U0003

== ENCOUNTER 2020-09-05 07:08 | Outpatient (CLI) | payer MEDICARE, SELFPAY ==
[2020-09-05 07:31] LABS: Basophils Absolute Auto 0.1 K/mm3 (0.0-0.1); Basophils Percent Auto 1.2 % (0.2-1.2); Eosinophils Absolute Auto 0.3 K/mm3 (0-0.3); Eosinophils Percent Auto 6.7 % (0-4.4); Hematocrit 34.4 % (42.0-52.0); Hemoglobin 11.3 g/dL (14.0-18.0); Immature Granulocyte Absolute 0.01 K/mm3 (0.00-0.031); Immature Granulocyte Percent A 0.2 % (0-0.5); Lymphocytes Absolute Auto 1.92 K/mm3 (0.9-3.2); Lymphocytes Percent Auto 46.2 % (18.3-44.2); Mean Corpuscular HGB Conc 32.8 g/dl (32-36); Mean Corpuscular Hemoglobin 31.1 pg (26-34); Mean Corpuscular Volume 94.8 fl (80-100); Mean Platelet Volume 9.4 fl (7.4-10.4); Monocytes Absolute Auto 0.3 K/mm3 (0.1-0.6); Monocytes Percent Auto 8.2 % (2.6-8.5); Neutrophils Absolute Auto 1.6 K/mm3 (1.3-6.7); Neutrophils Percent Auto 37.5 % (45.5-73.1); Platelet Count Result 110 k/mm3 (150-375); Red Blood Count 3.63 M/mm3 (4.6-6.20); Red Cell Distribution Width 14.4 % (11.5-14.5); White Blood Count 4.2 K/mm3 (4.5-10.0)
[2020-09-05 07:50] LABS: Ammonia 67 umol/L (9-30)
[2020-09-05 07:54] LABS: Alanine Aminotransferase 46 U/L (4-50); Albumin Level 3.7 g/dL (3.5-5.1); Alkaline Phosphatase 74 U/L (38-126); Anion Gap 6 mmol/L (8-16); Aspartate Amino Transferase 64 U/L (17-59); Bilirubin,Total 0.6 mg/dL (0.2-1.3); Blood Urea Nitrogen 16 mg/dL (9-20); Calcium 8.9 mg/dL (8.4-10.2); Carbon Dioxide 29 mmol/L (22-30); Chloride 107 mmol/L (98-107); Estimated Glomerular Filt Rate > 60; Glucose 121 mg/dL (75-110); Potassium 4.1 mmol/L (3.4-5.0); Sodium 142 mmol/L (137-145)
[2020-09-08 13:02] LABS: GGT 44 U/L (3-70)
== END 2020-09-05 07:09 | disposition home or self-care (01) ==
PROVIDERS: Family Provider Internal Medicine; PCP Internal Medicine; Referring Provider Internal Medicine; Visit Provider Internal Medicine
DX: D69.6 Thrombocytopenia, unspecified (principal); K76.0 Fatty (change of) liver, not elsewhere classified; K74.60 Unspecified cirrhosis of liver
CPT/HCPCS: 36415; 80053; 82140; 82977; 85025

== ENCOUNTER 2020-09-20 15:00 | Outpatient (RCR) | payer MEDICARE, SELFPAY ==
[2020-09-20 14:56] VITALS: BMI 39.5
[2020-09-20 14:59] VITALS: BMI 39.5
== END 2020-11-12 16:18 | disposition home or self-care (01) ==
LOC: ANHDMC 15:00
PROVIDERS: Family Provider Internal Medicine; PCP Internal Medicine; Visit Provider Internal Medicine
DX: E11.9 Type 2 diabetes mellitus without complications (principal); H54.8 Legal blindness, as defined in USA; Z79.4 Long term (current) use of insulin; Z71.89 Other specified counseling; Z71.3 Dietary counseling and surveillance
CPT/HCPCS: 97802; G0108

== ENCOUNTER 2020-10-10 08:16 | Outpatient (CLI) | payer MEDICARE, SELFPAY ==
[2020-10-10 08:37] LABS: Basophils Percent Auto 0.7 % (0.2-1.2); Eosinophils Absolute Auto 0.2 K/mm3 (0-0.3); Eosinophils Percent Auto 5.2 % (0-4.4); Hematocrit 34.6 % (42.0-52.0); Hemoglobin 11.6 g/dL (14.0-18.0); Immature Granulocyte Absolute 0.01 K/mm3 (0.00-0.031); Immature Granulocyte Percent A 0.2 % (0-0.5); Lymphocytes Absolute Auto 1.61 K/mm3 (0.9-3.2); Mean Corpuscular HGB Conc 33.5 g/dl (32-36); Mean Corpuscular Hemoglobin 31.3 pg (26-34); Mean Corpuscular Volume 93.3 fl (80-100); Mean Platelet Volume 9.4 fl (7.4-10.4); Monocytes Absolute Auto 0.4 K/mm3 (0.1-0.6); Neutrophils Percent Auto 46.9 % (45.5-73.1); Platelet Count Result 90 k/mm3 (150-375); Red Blood Count 3.71 M/mm3 (4.6-6.20); White Blood Count 4.2 K/mm3 (4.5-10.0)
[2020-10-10 09:08] LABS: Blood Urea Nitrogen 14 mg/dL (8-26); Carbon Dioxide 23 mmol/L (22-30); Chloride 107 mmol/L (98-109); Estimated Glomerular Filt Rate > 60; Glucose 130 mg/dL (70-105); Potassium 4.1 mmol/L (3.5-4.9); Sodium 142 mmol/L (138-146)
[2020-10-10 12:27] LABS: Alanine Aminotransferase 53 U/L (4-50); Albumin Level 3.7 g/dL (3.5-5.1); Alkaline Phosphatase 74 U/L (38-126); Anion Gap 8 mmol/L (8-16); Aspartate Amino Transferase 61 U/L (17-59); Bilirubin,Total 0.7 mg/dL (0.2-1.3); Blood Urea Nitrogen 14 mg/dL (9-20); Calcium 9.3 mg/dL (8.4-10.2); Carbon Dioxide 23 mmol/L (22-30); Chloride 110 mmol/L (98-107); Estimated Glomerular Filt Rate > 60; Glucose 128 mg/dL (75-110); Potassium 4.1 mmol/L (3.4-5.0); Sodium 141 mmol/L (137-145)
[2020-10-10 13:14] LABS: Iron 113 ug/dL (49-181)
[2020-10-10 13:25] LABS: Percent Iron Saturation 27 % (20-50)
== END 2020-10-10 08:17 | disposition home or self-care (01) ==
LOC: ANHLAB 08:20
PROVIDERS: PCP Internal Medicine; Visit Provider Internal Medicine Hematology & Oncology
DX: D64.9 Anemia, unspecified (principal)
CPT/HCPCS: 36415; 80048; 80053; 82607; 82728; 83540; 83550; 85025

== ENCOUNTER 2020-10-18 07:27 | Outpatient (CLI) | payer MEDICARE, SELFPAY ==
--- NOTE | ~2020-10-18 | US_ITS ---
EXAMINATION: US right upper quadrant EXAM DATE: 10/18/2020 08:09 INDICATION: K74.60 - Unspecified cirrhosis of liver. Thrombocytopenia. TECHNIQUE: Multiple grayscale and Doppler images of the abdomen right upper quadrant were obtained (b y a technologist who performed the scan) and subsequently reviewed. Comparison is made to prior exami nation from 03/30/2020. FINDINGS: Approximately 2 cm low echogenicity region in the body of the pancreas, possible pancreatic mass. Th e liver has mildly heterogeneous echogenicity and mildly nodular contour. There are no focal liver l esions identified. There is no evidence of intrahepatic biliary duct dilation. Portal venous flow was seen in the hepatopedal, normal direction and has normal Doppler waveform. No right-sided hydron ephrosis. Common bile duct measures 5 mm, which is normal. The gallbladder fossa is unremarkable. Spleen was measured in 2 dimensions, at 16.2 x 5.2 cm, mildly enlarged. Enlarged splenic vein at 21 m m. IMPRESSION: 1. Possible pancreatic head mass; recommend CT or MRI abdomen with contrast. 2. Cirrhosis. Normal portal venous flow direction. 3. Mild splenomegaly. Dilated splenic vein may indicate portal hypertension. Reviewed, dictated and finalized at location A. RED CAR MESSENGER
== END 2020-10-18 07:28 | disposition home or self-care (01) ==
PROVIDERS: PCP Internal Medicine; Visit Provider Internal Medicine Gastroenterology
DX: D69.6 Thrombocytopenia, unspecified (principal); R16.1 Splenomegaly, not elsewhere classified; K74.69 Other cirrhosis of liver
CPT/HCPCS: 76705

== ENCOUNTER 2020-10-26 06:38 | Outpatient (CLI) | payer MEDICARE, SELFPAY ==
--- NOTE | ~2020-10-26 | CT_ITS ---
EXAMINATION: CT abdomen pelvis w con EXAM DATE: 10/26/2020 07:34 INDICATION: Abnormal ultrasound. Evaluate pancreas. TECHNIQUE: Spiral CT of the abdomen and pelvis was performed following intravenous injection of 100 m L Omnipaque 350. Axial, coronal and sagittal images were reviewed. The dose-length product (DLP) fo r this examination was 1620.08 mGy-cm. The exposure was tailored according to patient size (auto mA exposure control), and iterative reconstruction (ASIR) was used as additional dose reduction techniqu e. Correlation is made to ultrasound 10/18/2020. FINDINGS: No evidence of pancreatic mass. Nodular liver contour consistent with cirrhosis. Spleen me asures 18 cm, and there are large splenorenal varices consistent with portal hypertension. The adrena l glands are unremarkable. There are cholecystectomy clips. Portal and splenic veins are patent. K idneys enhance symmetrically. There is no hydronephrosis. The prostate is unremarkable. Small bila teral inguinal fat-containing hernias. The bladder is collapsed at time of imaging limiting evaluati on. There is no retroperitoneal or pelvic lymphadenopathy. There is mild scattered arterioscleroti c disease. Left internal iliac artery fusiform dilation up to 1.6 cm versus its expected normal calib er of 9 mm. The appendix is normal. The stomach and small bowel are unremarkable. There is expected amount of c olonic stool. No free intraperitoneal gas. Mild cardiomegaly. The lung bases are unremarkable. L2-L4 laminectomies. Osseous fusion of the L4-5 vertebral bodies. Spine stimulator device. IMPRESSION: 1. Homogeneous pancreatic density, no evidence of mass. Ultrasound finding may have been artifact. 2. Cirrhosis, splenomegaly, portal hypertension. 3. Left internal iliac fusiform aneurysm. 4. Surgical changes. Reviewed, dictated and finalized at location D. 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
== END 2020-10-26 06:39 | disposition home or self-care (01) ==
PROVIDERS: PCP Internal Medicine; Visit Provider Nurse Practitioner Family
DX: K86.9 Disease of pancreas, unspecified (principal); I72.3 Aneurysm of iliac artery
CPT/HCPCS: 74177; Q9967

== ENCOUNTER 2020-11-20 09:01 | Outpatient (CLI) | payer MEDICARE, SELFPAY ==
[2020-11-20 09:22] LABS: Basophils Absolute Auto 0.1 K/mm3 (0.0-0.1); Basophils Percent Auto 1.4 % (0.2-1.2); Eosinophils Absolute Auto 0.3 K/mm3 (0-0.3); Eosinophils Percent Auto 7.5 % (0-4.4); Hematocrit 36.3 % (42.0-52.0); Hemoglobin 12.2 g/dL (14.0-18.0); Immature Granulocyte Absolute 0.01 K/mm3 (0.00-0.031); Immature Granulocyte Percent A 0.2 % (0-0.5); Lymphocytes Absolute Auto 1.66 K/mm3 (0.9-3.2); Lymphocytes Percent Auto 37.6 % (18.3-44.2); Mean Corpuscular HGB Conc 33.6 g/dl (32-36); Mean Corpuscular Volume 92.4 fl (80-100); Mean Platelet Volume 9.1 fl (7.4-10.4); Monocytes Absolute Auto 0.4 K/mm3 (0.1-0.6); Monocytes Percent Auto 8.1 % (2.6-8.5); Neutrophils Percent Auto 45.2 % (45.5-73.1); Platelet Count Result 94 k/mm3 (150-375); Red Blood Count 3.93 M/mm3 (4.6-6.20); Red Cell Distribution Width 14.8 % (11.5-14.5); White Blood Count 4.4 K/mm3 (4.5-10.0)
[2020-11-20 09:29] LABS: Blood Urea Nitrogen 14 mg/dL (8-26); Carbon Dioxide 27 mmol/L (22-30); Chloride 104 mmol/L (98-109); Estimated Glomerular Filt Rate > 60; Glucose 115 mg/dL (70-105); Sodium 141 mmol/L (138-146)
[2020-11-20 12:35] LABS: Iron 92 ug/dL (49-181)
[2020-11-20 12:38] LABS: Alanine Aminotransferase 51 U/L (4-50); Albumin Level 4.3 g/dL (3.5-5.1); Alkaline Phosphatase 87 U/L (38-126); Anion Gap 9 mmol/L (8-16); Aspartate Amino Transferase 65 U/L (17-59); Bilirubin,Total 0.6 mg/dL (0.2-1.3); Blood Urea Nitrogen 16 mg/dL (9-20); Calcium 9.2 mg/dL (8.4-10.2); Carbon Dioxide 24 mmol/L (22-30); Chloride 107 mmol/L (98-107); Estimated Glomerular Filt Rate > 60; Glucose 115 mg/dL (75-110); Potassium 4.3 mmol/L (3.4-5.0); Sodium 140 mmol/L (137-145)
[2020-11-20 12:47] LABS: Percent Iron Saturation 22 % (20-50)
== END 2020-11-20 09:02 | disposition home or self-care (01) ==
LOC: ANHLAB 09:05
PROVIDERS: PCP Internal Medicine; Visit Provider Internal Medicine Hematology & Oncology
DX: D64.9 Anemia, unspecified (principal)
CPT/HCPCS: 36415; 80048; 80053; 82607; 82728; 83540; 83550; 85025

== ENCOUNTER 2020-12-02 08:38 | Outpatient (CLI) | payer MEDICARE, SELFPAY ==
--- NOTE | ~2020-12-02 | US_ITS ---
US right upper quadrant DATE: 12/02/2020 09:54 INDICATION: Liver cirrhosis TECHNIQUE: Real-time imaging of liver, pancreas, gallbladder fossa COMPARISON: 11/04/2020 CT abdomen pelvis 03/30/2020 limited abdominal ultrasound FINDINGS: The gallbladder is surgically absent. The common bile duct measures 4 mm, within normal garduno its. There is surface nodularity of the liver consistent with clinical diagnosis of cirrhosis. Normal port al venous hepatopedal flow. No hepatic or pancreatic space-occupying mass lesion is evident. IMPRESSION: Cirrhosis Status post cholecystectomy Reviewed, dictated and finalized at Location A. Reviewed, dictated and finalized at location A.
== END 2020-12-02 08:39 | disposition home or self-care (01) ==
LOC: ANHIMG 08:43
PROVIDERS: PCP Internal Medicine; Visit Provider Internal Medicine Medical Oncology
DX: D69.6 Thrombocytopenia, unspecified (principal); K74.60 Unspecified cirrhosis of liver; R74.8 Abnormal levels of other serum enzymes; Z90.49 Acquired absence of other specified parts of digestive tract
CPT/HCPCS: 76705

== ENCOUNTER → 2020-12-04 03:34 | Outpatient (CLI) | payer MEDICARE, SELFPAY ==
[2020-12-04 20:31] LABS: SARS-CoV-2 RNA PCR Negative
== END ==
PROVIDERS: PCP Internal Medicine; Visit Provider Internal Medicine Critical Care Medicine
DX: Z01.812 Encounter for preprocedural laboratory examination (principal); Z20.822 Contact with and (suspected) exposure to COVID-19
CPT/HCPCS: C9803; U0003; U0005

== ENCOUNTER 2020-12-06 09:31 | Outpatient (CLI) | payer MEDICARE, SELFPAY ==
--- NOTE | 2020-12-21 15:10 | WPDSLEEPSTUD ---
Sleep Study Date of Study: 12/06/20 Ordering Provider: Jaswant Tse MD Interpreting Physician: Roberta Del Rio MD Sleep Study Type: Split Polysomnogram Height: 1.85 m Weight: 143.789 kg Body Mass Index: 41.8 Neck Circumference (inches): 21 [place]: 5 Reason for Sleep Study known obstructive sleep apnea, 09/04/2005 - Severe, AHI 57.7, optimal pressure 16 cm, BMI 38.7.. Sleep History Huber Cook is a 65 year old man with obstructive sleep apnea. He is in need of a new device and supplies. he started treatment in 2005 but cannot get a new machine until he is retested. He has difficulty falling asleep, he wakes up throughout the night and has excessive daytime sleepiness. He occasionally awakens from sleep feeling short of breath. He constantly awakens at night with heartburn, belching or coughing. He frequently snores and is frequently loud enough that others complain about it. He frequently has trouble sleep with a cold. He does not wake up gasping for breath at night. He does not have breathing problems at night observed by others. He does not sweat excessively at night or notices his heart pounding or beating irregularly at night do not have loss of muscle tone was strong emotion the paralyzed on waking or falling asleep. He does not have vivid dreamlike scenes upon awakening or falling asleep. He never feels afraid to go to sleep. He occasionally has nightmares and occasionally remembers his dreams. He frequently has racing thoughts. He occasionally feels sad or depressed. He frequently has anxiety. He frequently has muscular tension. He does not notice parts of his body jerking. He does not kick at night. He frequently has chronic aching feelings in his legs and has leg pain during the night. He does not have morning jaw pain. He does not grind his teeth during sleep. He frequently is bothered by pain during the day, frequently awakened by pain at night and frequently wakes up feeling stiff in the morning with sore achy muscles and pain in the neck and spine. Normal bedtime is 11:30 p.m.. It takes a variable amount of time for him to fall asleep. He typically wakes once at night. Sometimes when he wakes at night he is not able to return to sleep. His normal wake up time is 4:00 a.m.. He estimates getting 5-6 hours of sleep at night. He takes naps in the afternoon or evening. A short nap is not refreshing. He is usually tired the morning for 2 hours or longer. Habits: Never smoked tobacco. Caffeine on occasion 8 oz. No alcohol or recreational drugs. 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 Body mass index (BMI) 40.0-44.9, adult Callus of foot Cirrhosis DJD (degenerative joint disease), multiple sites Encephalopathy Esophageal spasm Essential (primary) hypertension Fatigue Follow up Gastroesophageal reflux disease without esophagitis Glaucoma Left eye Hamm[place]oe Hepatitis B No longer active Herniated cervical disc Hyperammonemia Hyperlipidemia Hypothyroidism Iron deficiency With most recent iron studies within normal limits 2019 Liver encephalopathy Memory problem Mixed hyperlipidemia Obesity, morbid, BMI 40.0-49.9 COREY on CPAP COREY on CPAP Pancreatic mass Peripheral neuropathy Personal history of nicotine dependence PTSD (post-traumatic stress disorder) Sinusitis Thrombocytopenia Type 2 diabetes mellitus Hemoglobin A1c of 5.3 05/04/2020 Surgical History Surgical History (System 12/04/20 @ 14:18 by Desi Murphy) History of bilateral carpal tunnel release History of cardiac catheterization 2012 at [facility] Dr. Moncada History of colonoscopy with polypectomy November 2019 History of total bilateral knee replacement With multiple revisions of the right knee due to infectio
[2020-12-21 15:34] VITALS: BMI 41.8
== END 2020-12-06 09:32 | disposition home or self-care (01) ==
LOC: ANHCSM 09:31
PROVIDERS: PCP Internal Medicine; Visit Provider Internal Medicine
DX: G47.33 Obstructive sleep apnea (adult) (pediatric) (principal); Z99.89 Dependence on other enabling machines and devices
CPT/HCPCS: 95811

== ENCOUNTER 2021-01-03 22:51 | Emergency (ER) | payer MEDICARE, SELFPAY ==
--- NOTE | ~2021-01-03 | XR_ITS ---
EXAMINATION: XR knee RT 3V DATE: 01/03/2021 23:25 INDICATION: Right knee pain TECHNIQUE: Three views of the right knee were obtained. COMPARISON: 12/04/2014 FINDINGS: There has been interval revision of the right knee arthroplasty. No fracture is identified. There is a large knee joint effusion. No fracture is identified. There is soft tissue swelling surro unding the knee. There are multiple areas of heterotopic ossification surrounding the knee joint. IMPRESSION: 1. Large knee joint effusion. 2. Interval revision of right knee arthroplasty. Reviewed, dictated and finalized at location A.
[2021-01-03 22:46] VITALS: BP 154/68; PULSE 89; RESP 18; TEMP 38.2; O2SAT 98
--- NOTE | 2021-01-03 23:01 | ED.GENADULT ---
HPI - General Adult General Chief complaint: Extremity Injury, Lower Stated complaint: r knee pain x 1 week Source: patient, EMS, RN notes reviewed and old records reviewed History of Present Illness HPI narrative: 65-year-old male presents to emergency department for right knee pain for the past week to a week and a half. Patient had knee replacement done about 1 year ago at [facility]. Reports he has noticed some swelling, pain, redness to his right knee. He also has been having pain with ambulation. Related Data Home Medications Medication Instructions Recorded Confirmed blood sugar diagnostic #10 ea 08/02/20 11/15/20 divalproex 250 mg PO BID 08/26/20 11/15/20 omeprazole 20 mg PO HS 08/26/20 11/15/20 multivitamin 1 tablet PO DAILY 09/06/20 11/15/20 Allergies Allergy/AdvReac Type Severity Reaction Status Date / Time No Known Allergies Allergy Verified 12/04/20 14:18 Review of Systems Review of Systems: Narrative: CONSTITUTIONAL: Denies fever, chills, or sweats. EYES: Denies visual changes, redness, or discharge. ENT: Denies rhinorrhea, congestion, sore throat, or otalgia. CARDIOVASCULAR: Denies chest pain, palpitations, or edema. RESPIRATORY: Denies cough or dyspnea. GASTROINTESTINAL: Denies abdominal pain, nausea, vomiting, or diarrhea. GENITOURINARY: Denies dysuria or hematuria. SKIN: Denies rash or itching. MUSCULOSKELETAL: Denies back pain and myalgia. Right knee pain NEUROLOGIC: Denies headache, numbness, dizziness, or weakness. PSYCHIATRIC: Denies anxiety or depression. 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 Body mass index (BMI) 40.0-44.9, adult Callus of foot Cirrhosis DJD (degenerative joint disease), multiple sites Encephalopathy Esophageal spasm Essential (primary) hypertension Fatigue Follow up Gastroesophageal reflux disease without esophagitis Glaucoma Left eye [place] Hepatitis B No longer active Herniated cervical disc Hyperammonemia Hyperlipidemia Hypothyroidism Iron deficiency With most recent iron studies within normal limits 2020 Liver encephalopathy Memory problem Mixed hyperlipidemia Obesity, morbid, BMI 40.0-49.9 COREY on CPAP COREY on CPAP Pancreatic mass Peripheral neuropathy Personal history of nicotine dependence PTSD (post-traumatic stress disorder) Sinusitis Thrombocytopenia Type 2 diabetes mellitus Hemoglobin A1c of 5.3 05/04/2020 Surgical History Surgical History History of bilateral carpal tunnel release History of cardiac catheterization [address] [facility] [address] Moncada History of colonoscopy with polypectomy November 2019 History of total bilateral knee replacement With multiple revisions of the right knee due to infection with the last revision being in 2019. Hx of cholecystectomy S/P insertion of spinal cord stimulator December 2019 Family History Family History Father Carcinoma of colon Bone cancer Mother Lung cancer Breast cancer Brain cancer Sibling Acute myocardial infarction Diabetes mellitus Other Family history of hearing loss Social History Social History Social History: He lives in [place] with his Hiral. 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 He used to smoke cigars but quit smoking in 1994. Primary care physician: Dr. Jaswant Tse Code status: Full code per EMR Surrogate decision maker: Hiral () Smoking status: Former smoker Second hand tobacco smoke exposure: No Alcohol intake: former Substance use: never Spiritual care concerns: No
[2021-01-03] MEDS: KETOROLAC 15 MG/ML VIAL (*BKC) IV PUSH (23:17)
[2021-01-03 23:42] LABS: Basophils Percent Auto 0.5 % (0.2-1.2); Eosinophils Absolute Auto 0.1 K/mm3 (0-0.3); Eosinophils Percent Auto 1.7 % (0-4.4); Hematocrit 35.1 % (42.0-52.0); Hemoglobin 11.5 g/dL (14.0-18.0); Immature Granulocyte Absolute 0.03 K/mm3 (0.00-0.031); Immature Granulocyte Percent A 0.5 % (0-0.5); Lymphocytes Absolute Auto 0.92 K/mm3 (0.9-3.2); Lymphocytes Percent Auto 15.5 % (18.3-44.2); Mean Corpuscular HGB Conc 32.8 g/dl (32-36); Mean Corpuscular Hemoglobin 30.2 pg (26-34); Mean Corpuscular Volume 92.1 fl (80-100); Mean Platelet Volume 8.9 fl (7.4-10.4); Monocytes Absolute Auto 0.7 K/mm3 (0.1-0.6); Monocytes Percent Auto 11.3 % (2.6-8.5); Neutrophils Absolute Auto 4.2 K/mm3 (1.3-6.7); Neutrophils Percent Auto 70.5 % (45.5-73.1); Platelet Count Result 125 k/mm3 (150-375); Red Blood Count 3.81 M/mm3 (4.6-6.20); Red Cell Distribution Width 14.4 % (11.5-14.5)
[2021-01-03 23:56] LABS: Alanine Aminotransferase 37 U/L (4-50); Albumin Level 4.1 g/dL (3.5-5.1); Alkaline Phosphatase 71 U/L (38-126); Anion Gap 9 mmol/L (8-16); Aspartate Amino Transferase 51 U/L (17-59); Bilirubin,Total 1.1 mg/dL (0.2-1.3); Blood Urea Nitrogen 15 mg/dL (9-20); CRP 7.5 mg/dL (<1.0); Calcium 9.5 mg/dL (8.4-10.2); Carbon Dioxide 24 mmol/L (22-30); Chloride 106 mmol/L (98-107); Estimated CRCL calculation 139 ml/min; Estimated Glomerular Filt Rate > 60; Glucose 187 mg/dL (75-110); Potassium 4.7 mmol/L (3.4-5.0); Sodium 139 mmol/L (137-145)
--- NOTE | 2021-01-04 00:10 | PC.NURSE ---
dr. coreas, tapped right knee, obtained 20cc fluid out, pt yodit well.
[2021-01-04 00:55] LABS: Erythrocyte Sedimentation Rate 98 mm/hr (0-20)
[2021-01-04 02:07] LABS: Crystals Synovial Fluid None Seen (None Seen)
[2021-01-04 02:09] LABS: Appearance Synovial Fluid Hazy (Clear); Color Synovial Fluid Yellow (Colorless); Source Synovial Fluid Synovial fluid
[2021-01-04 02:10] LABS: Lymphocytes Synovial Fluid 3 %; Monocytes Synovial Fluid 2 %; Neutrophils Synovial Fluid 95 % (0-25); Nucleated Cell Synovial Fluid 33121 /uL (0-200); RBC Synovial Fluid 3105 /uL (0-0)
[2021-01-04 04:14] VITALS: BP 138/76; PULSE 78; RESP 16; O2SAT 98
--- NOTE | 2021-01-04 06:40 | PC.NURSE ---
Marion from [facility] ([place]) patient transfer called and said she confirmed that patient is accepted at [facility]. Waiting for bed assignment from them.
[2021-01-04 07:09] VITALS: BP 132/62; PULSE 65; RESP 14; TEMP 36.8; O2SAT 99
[2021-01-04 11:31] VITALS: BP 152/63; PULSE 70; RESP 18; O2SAT 100
[2021-01-08 19:06] LABS: Glucose Synovial Fluid 49 mg/dL
== END 2021-01-04 11:33 | disposition home or self-care (01) ==
PROVIDERS: Emergency Provider Emergency Medicine; PCP Internal Medicine
DX: M00.9 Pyogenic arthritis, unspecified (principal); Z96.653 Presence of artificial knee joint, bilateral; E11.42 Type 2 diabetes mellitus with diabetic polyneuropathy; K74.60 Unspecified cirrhosis of liver; I10 Essential (primary) hypertension; E78.2 Mixed hyperlipidemia; K21.9 Gastro-esophageal reflux disease without esophagitis; G47.33 Obstructive sleep apnea (adult) (pediatric); E03.9 Hypothyroidism, unspecified; H40.9 Unspecified glaucoma; F41.9 Anxiety disorder, unspecified; F32.9 Major depressive disorder, single episode, unspecified; F43.10 Post-traumatic stress disorder, unspecified; E66.01 Morbid (severe) obesity due to excess calories; Z68.41 Body mass index [BMI] 40.0-44.9, adult; Z96.82 Presence of neurostimulator; Z89.022 Acquired absence of left finger(s); Z86.19 Personal history of other infectious and parasitic diseases; Z87.891 Personal history of nicotine dependence; Z79.4 Long term (current) use of insulin
CPT/HCPCS: 20610; 36415; 73562; 80053; 82945; 84157; 85025; 85652; 86140; 87070; 87075; 87077; 87186; 87205; 88108; 89051; 89060; 96365; 96367; 96375; 99284; J0692; J1885; J3370

== ENCOUNTER 2021-03-22 09:30 | Outpatient (CLI) | payer MEDICARE, SELFPAY ==
[2021-03-22 09:54] LABS: Basophils Percent Auto 0.8 % (0.2-1.2); Eosinophils Absolute Auto 0.3 K/mm3 (0-0.3); Eosinophils Percent Auto 7.5 % (0-4.4); Hematocrit 32.3 % (42.0-52.0); Hemoglobin 10.2 g/dL (14.0-18.0); Immature Granulocyte Absolute 0.01 K/mm3 (0.00-0.031); Immature Granulocyte Percent A 0.3 % (0-0.5); Lymphocytes Absolute Auto 1.47 K/mm3 (0.9-3.2); Lymphocytes Percent Auto 36.8 % (18.3-44.2); Mean Corpuscular HGB Conc 31.6 g/dl (32-36); Mean Corpuscular Hemoglobin 28.8 pg (26-34); Mean Corpuscular Volume 91.2 fl (80-100); Mean Platelet Volume 8.7 fl (7.4-10.4); Monocytes Absolute Auto 0.4 K/mm3 (0.1-0.6); Monocytes Percent Auto 8.8 % (2.6-8.5); Neutrophils Absolute Auto 1.8 K/mm3 (1.3-6.7); Neutrophils Percent Auto 45.8 % (45.5-73.1); Platelet Count Result 96 k/mm3 (150-375); Red Blood Count 3.54 M/mm3 (4.6-6.20); Red Cell Distribution Width 16.6 % (11.5-14.5)
[2021-03-22 09:58] LABS: Blood Urea Nitrogen 16 mg/dL (8-26); Carbon Dioxide 19 mmol/L (22-30); Chloride 109 mmol/L (98-109); Estimated Glomerular Filt Rate > 60; Glucose 130 mg/dL (70-105); Potassium 4.2 mmol/L (3.5-4.9); Sodium 144 mmol/L (138-146)
[2021-03-22 10:22] LABS: Alanine Aminotransferase 31 U/L (4-50); Albumin Level 3.8 g/dL (3.5-5.1); Alkaline Phosphatase 73 U/L (38-126); Anion Gap 9 mmol/L (8-16); Aspartate Amino Transferase 51 U/L (17-59); Bilirubin,Total 0.7 mg/dL (0.2-1.3); Blood Urea Nitrogen 15 mg/dL (9-20); Calcium 9.1 mg/dL (8.4-10.2); Carbon Dioxide 21 mmol/L (22-30); Chloride 112 mmol/L (98-107); Estimated Glomerular Filt Rate > 60; Glucose 126 mg/dL (65-110); Potassium 4.3 mmol/L (3.4-5.0); Sodium 142 mmol/L (137-145)
[2021-03-22 12:12] LABS: Iron 117 ug/dL (49-181)
[2021-03-22 12:24] LABS: Percent Iron Saturation 29 % (20-50)
== END 2021-03-22 09:31 | disposition home or self-care (01) ==
PROVIDERS: PCP Internal Medicine; Visit Provider Internal Medicine Hematology & Oncology
DX: D64.9 Anemia, unspecified (principal)
CPT/HCPCS: 36415; 80048; 80053; 82607; 82728; 83540; 83550; 85025